=== PATIENT | female | born 1985 | race Caucasian/White ===

== ENCOUNTER 2020-06-08 13:22 | Inpatient (IN) | payer MEDICAID ==
[2020-06-08] MEDS ORDERED: Ondansetron 4 MG/2 ML SDV IVPUSH ONE ×2 (13:47→16:20)
[2020-06-08] MEDS ORDERED: Ketorolac 30 MG/ML SDV IVPUSH ONE (13:47)
[2020-06-08] MEDS ORDERED: Sodium Chloride 0.9% 1,000 ML IV ONE ×2 (13:47→18:31)
--- NOTE | 2020-06-08 13:54 | EDM.PDOC ---
ED HPI GENERAL MEDICAL PROBLEM - General Chief Complaint: General Stated Complaint: vomiting body aches Time Seen by Provider: 06/08/20 13:26 Source of Information: Reports: Patient History Limitations: Reports: No Limitations - History of Present Illness INITIAL COMMENTS - FREE TEXT/NARRATIVE: HISTORY AND PHYSICAL: History of present illness: Patient is a 34-year-old female who presents to the emergency room with complaints of nausea, vomiting, body aches and subjective fevers x24 hours. During the interviewing process she is tearful/crying states that she "just does not feel well". Yesterday she felt in good health. Upon awakening she states she just hurts "all over" and had a low-grade temperature of 99.5. She has tried to eat and drink but shortly after has vomited. Patient denies any chills, headache, change in vision, syncope or near syncope. Denies any chest pain, back pain, shortness of breath or cough. Denies any abdominal pain, nausea, vomiting, diarrhea, constipation or dysuria. Has not noted any blood in urine or stool. Patient has been eating and drinking appropriately. No recent exposure to any sick contacts. No recent travel. No recent antibiotic use. Review of systems: As per history of present illness and below otherwise all systems reviewed and negative. Past medical history: As per history of present illness and as reviewed below otherwise noncontributory. Surgical history: As per history of present illness and as reviewed below otherwise noncontributory. Social history: See social history for further information Family history: As per history of present illness and as reviewed below otherwise noncontributory. Physical exam: General: Well developed and well nourished 34-year-old female. Alert and orientated x 3. Nontoxic in appearance and in no acute distress. Vital signs are stable and have been reviewed by me. Nursing notes were reviewed. HEENT: Atraumatic, normocephalic, pupils equal and reactive bilaterally, negative for conjunctival pallor or scleral icterus, mucous membranes moist, TMs normal bilaterally, throat clear, neck supple, nontender, trachea midline. No drooling or trismus noted. No meningeal signs. No hot potato voice noted. Lungs: Clear to auscultation bilaterally. No wheezes, rales, or rhonchi. Chest nontender. Normal work of breathing, no accessory muscles used. Heart: S1S2, tachycardic with regular rate and rhythm without overt murmur, gallops, or rubs. No JVD. No peripheral edema Abdomen: Soft, nondistended, nontender. Normoactive bowel sounds. Negative for masses or costovertebral tenderness. Skin: Intact, warm, dry. No lesions or rashes noted. Hematologic: No petechiae or purpra. Mucosa appropriate color and normal nail bed color and refill. Extremities: Atraumatic, moves all extremities per self without difficulty or deficits, negative for cords or calf pain. Neurovascular unremarkable. Neuro: Awake, alert, oriented. Cranial nerves II through XII unremarkable. C erebellum unremarkable. Motor and sensory unremarkable throughout. Exam nonfocal. Psychiatric: Mood and affect are appropriate. Normal thought process. Answering questions appropriately. Notes: *This patient was seen and evaluated during the 2019 SARS-CoV-2 novel coronavirus pandemic period. Community viral transmission is ongoing at time of this encounter and the emergency department is operating under pandemic response procedures. Chest x-ray is unremarkable. Patient has a leukocytosis of 19.18, high neutrophils at 17.1. She also has an elevated D-dimer at 0.71. Her COVID and influenza screening are negative. Due to the leukocytosis and elevated D-dimer I will do a CT scan of her chest, abdomen and pelvis. No CT evidence of a large or central pulmonary embolus. Limited evaluation of some peripheral pulmonary arteries. An apparent luminal hypodensity in a left lower lobe branch is at least partially related to regional respiratory motion artifact. A patchy right middle lobe opacity and a small left upper lobe ground-glass opacity, compatible with infectious or inflammatory infiltrates, including, however not limited to, COVID-19. Correlate clinically and follow-up. A 1.4 cm right breast soft tissue nodule and a smaller left breast soft tissue nodule versus glandular tissue. Recommend formal breast evaluation with sonography and, if indicated, mammography. CT abd/pelvis shows a leiomyomatous uterus containing a 9.2 cm heterogeneous dominant mass which could represent a degenerated myoma. Malignant transformation cannot be excluded. The mass apparently compresses and displaces the endometrium, although endometrial involvement or origin cannot be entirely excluded. A 5.1 cm right adnexal low-density lesion. Recommend pelvic sonography and gynecological evaluation. Small pelvic free fluid. Focal edema and stranding in the retroperitoneum anterior to the distal aorta and IVC, nonspecific. This could be reactive, related to vascular or lymphatic congestion, versus a nonspecific regional inflammatory process. Hepatosplenomegaly. Prominent gonadal veins which could represent pelvic congestion syndrome. Small fat containing ventral hernias. Pelvic Ultrasound shows a 9.2 cm heterogeneous uterine myoma. A 4.7 cm right ovarian cyst. I have talked with the patient about today's findings, in addition to providing specific details for plan of care. Reassessment at the time of disposition demonstrates that the patient is in no acute distress. She continues to feel unwell. We will keep her for antibiotics and further evaluation/management. Dr Burnett was consulted on this case and is agreeable to keeping her for further care and management. Patient is aware and agreeable. Diagnostics: CBC, CMP, UA, chest x-ray, COVID/influenza Therapeutics: IV fluid, Zofran, Toradol, Morphine, Acetaminophen, Rocephin, Azithromycin Impression: Pneumonia Uterine myoma Plan: Admission to Med/Surg Definitive disposition and diagnosis as appropriate pending reevaluation and review of above. Duration: Hour(s): general Pain Score (Numeric/FACES): 7 - Related Data Allergies Allergy/AdvReac Type Severity Reaction Status Date / Time No Known Allergies Allergy Verified 06/08/20 20:35 Home Meds: Home Meds Inhaler,Assist Device,Accesory [Easivent] 06/08/20 [History] ED ROS GENERAL - Review of Systems Review Of Systems: Comprehensive ROS is negative, except as noted in HPI. ED EXAM, GENERAL - Physical Exam Exam: See Below (See dictation) Course - Vital Signs Last Recorded V/S: Last Vital Signs Temp 98.4 F 06/08/20 20:20 Pulse 109 H 06/08/20 20:20 Resp 18 06/08/20 20:20 BP 124/56 L 06/08/20 20:20 Pulse Ox 100 06/08/20 20:20 - Orders/Labs/Meds Orders: Active Orders 24 hr Category Date Time Status Admission Status [Patient Status] [ADT] Stat ADT 06/08/20 18:32 Active Medication Orders Acetaminophen (Tylenol) 650 mg PO Q4H PRN PRN Reason: Pain (Mild 1-3)/fever Albuterol/Ipratropium (Combivent Respimat) 0 gm INH Q4H PRN PRN Reason: Dyspnea Azithromycin (Zithromax) 500 mg PO Q24H SYLVIA Enoxaparin Sodium (Lovenox) 40 mg SUBCUT Q24H SYLVIA Last Admin: 06/08/20 20:16 Dose: 40 mg Documented by: ANNY Sodium Chloride (Normal Saline) 1,000 mls @ 125 mls/hr IV STAT SYLVIA Stop: 06/09/20 03:14 Last Admin: 06/08/20 20:19 Dose: 125 mls/hr Documented by: ANNY Ceftriaxone Sodium/Dextrose 1 (gm/ Premix) 50 mls @ 100 mls/hr IV Q24H SYLVIA Ondansetron HCl (Zofran) 4 mg IVPUSH Q4H PRN PRN Reason: Nausea Labs: Laboratory Tests 06/08/20 06/08/20 06/08/20 Range/Units 14:07 14:07 14:07 WBC 19.18 H (4.0-11.0) K/uL RBC 4.60 (4.30-5.90) M/uL Hgb 8.8 L (12.0-16.0) g/dL Hct 31.2 L (36.0-46.0) % MCV 67.8 L (80.0-98.0) fL MCH 19.1 L (27.0-32.0) pg MCHC 28.2 L (31.0-37.0) g/dL RDW Std Deviation 41.6 (28.0-62.0) fl RDW Coeff of Hailee 17 H (11.0-15.0) % Plt Count 310 (150-400) K/uL MPV 10.50 (7.40-12.00) fL Neut % (Auto) 89.1 H (48.0-80.0) % Lymph % (Auto) 4.2 L (16.0-40.0) % Cowley % (Auto) 6.4 (0.0-15.0) % Eos % (Auto) 0.2 (0.0-7.0) % Baso % (Auto) 0.1 (0.0-1.5) % Neut # (Auto) 17.1 H (1.4-5.7) K/uL Lymph # (Auto) 0.8 (0.6-2.4) K/uL Cowley # (Auto) 1.2 H (0.0-0.8) K/uL Eos # (Auto) 0.0 (0.0-0.7) K/uL Baso # (Auto) 0.0 (0.0-0.1) K/uL Nucleated RBC % 0.0 /100WBC Nucleated RBCs # 0 K/uL D-Dimer, Quantitative 0.71 H (0.0-0.50) mg/L FEU Sodium 139 (136-145) mmol/L Potassium 3.6 (3.5-5.1) mmol/L Chloride 103 (98-107) mmol/L Carbon Dioxide 25.7 (21.0-32.0) mmol/L BUN 13 (7.0-18.0) mg/dL Creatinine 0.9 (0.6-1.0) mg/dL Est Cr Clr Drug Dosing 69.00 mL/min Estimated GFR (MDRD) > 60.0 ml/min Glucose 107 H (74-106) mg/dL Calcium 8.5 (8.5-10.1) mg/dL Total Bilirubin 0.6 (0.2-1.0) mg/dL AST 11 L (15-37) IU/L ALT 9 L (14-63) IU/L Alkaline Phosphatase 83 (46-116) U/L Total Protein 7.6 (6.4-8.2) g/dL Albumin 3.8 (3.4-5.0) g/dL Globulin 3.8 (2.6-4.0) g/dL Albumin/Globulin Ratio 1.0 (0.9-1.6) Urine Color Urine Appearance Urine pH (5.0-8.0) Ur Specific [place] (1.001-1.035) Urine Protein (NEGATIVE) mg/dL Urine Glucose (UA) (NEGATIVE) mg/dL Urine Ketones (NEGATIVE) mg/dL Urine Occult Blood (NEGATIVE) Urine Nitrite (NEGATIVE) Urine Bilirubin (NEGATIVE) Urine Urobilinogen (<2.0) EU/dL Ur Leukocyte Esterase (NEGATIVE) Urine RBC (0-2/HPF) Urine WBC (0-5/HPF) Ur Epithelial Cells (NONE-FEW) Urine Bacteria (NEGATIVE) Urine HCG, Qual (NEGATIVE) Influenza Type A RNA (NEGATIVE) Influenza Type B RNA (NEGATIVE) SARS-CoV-2 RNA (ADA) (NEGATIVE) 06/08/20 06/08/20 06/08/20 Range/Units 14:35 16:34 16:34 WBC (4.0-11.0) K/uL RBC (4.30-5.90) M/uL Hgb (12.0-16.0) g/dL Hct (36.0-46.0) % MCV (80.0-98.0) fL MCH (27.0-32.0) pg MCHC (31.0-37.0) g/dL RDW Std Deviation (28.0-62.0) fl RDW Coeff of Hailee (11.0-15.0) % Plt Count (150-400) K/uL MPV (7.40-12.00) fL Neut % (Auto) (48.0-80.0) % Lymph % (Auto) (16.0-40.0) % Cowley % (Auto) (0.0-15.0) % Eos % (Auto) (0.0-7.0) % Baso % (Auto) (0.0-1.5) % Neut # (Auto) (1.4-5.7) K/uL Lymph # (Auto) (0.6-2.4) K/uL Cowley # (Auto) (0.0-0.8) K/uL Eos # (Auto) (0.0-0.7) K/uL Baso # (Auto) (0.0-0.1) K/uL Nucleated RBC % /100WBC Nucleated RBCs # K/uL D-Dimer, Quantitative (0.0-0.50) mg/L FEU Sodium (136-145) mmol/L Potassium (3.5-5.1) mmol/L Chloride (98-107) mmol/L Carbon Dioxide (21.0-32.0) mmol/L BUN (7.0-18.0) mg/dL Creatinine (0.6-1.0) mg/dL Est Cr Clr Drug Dosing mL/min Estimated GFR (MDRD) ml/min Glucose (74-106) mg/dL Calcium (8.5-10.1) mg/dL Total Bilirubin (0.2-1.0) mg/dL AST (15-37) IU/L ALT (14-63) IU/L Alkaline Phosphatase (46-116) U/L Total Protein (6.4-8.2) g/dL Albumin (3.4-5.0) g/dL Globulin (2.6-4.0) g/dL Albumin/Globulin Ratio (0.9-1.6) Urine Color YELLOW Urine Appearance CLEAR Urine pH 5.0 (5.0-8.0) Ur Specific [place] 1.015 (1.001-1.035) Urine Protein NEGATIVE (NEGATIVE) mg/dL Urine Glucose (UA) NEGATIVE (NEGATIVE) mg/dL Urine Ketones NEGATIVE (NEGATIVE) mg/dL Urine Occult Blood TRACE-INTACT H (NEGATIVE) Urine Nitrite NEGATIVE (NEGATIVE) Urine Bilirubin NEGATIVE (NEGATIVE) Urine Urobilinogen 0.2 (<2.0) EU/dL Ur Leukocyte Esterase NEGATIVE (NEGATIVE) Urine RBC 0-1 (0-2/HPF) Urine WBC 0-1 (0-5/HPF) Ur Epithelial Cells RARE (NONE-FEW) Urine Bacteria FEW (NEGATIVE) Urine HCG, Qual NEGATIVE (NEGATIVE) Influenza Type A RNA NEGATIVE (NEGATIVE) Influenza Type B RNA NEGATIVE (NEGATIVE) SARS-CoV-2 RNA (ADA) NEGATIVE (NEGATIVE) Meds: Medications Generic Name Dose Route Start Last Admin Trade Name Freq PRN Reason Stop Dose Admin Acetaminophen 650 mg 06/08/20 19:05 Tylenol PO Q4H PRN Pain (Mild 1-3)/fever Albuterol/Ipratropium 0 gm 06/08/20 18:00 Combivent Respimat INH Q4H PRN Dyspnea Azithromycin 500 mg 06/08/20 19:15 Zithromax PO Q24H SYLVIA Enoxaparin Sodium 40 mg 06/08/20 19:15 06/08/20 20:16 Lovenox SUBCUT 40 mg Q24H SYLVIA Administration Sodium Chloride 1,000 mls @ 125 mls/hr 06/08/20 19:15 06/08/20 20:19 Normal Saline IV 06/09/20 03:14 125 mls/hr STAT SYLVIA Administration Ceftriaxone Sodium/Dextrose 1 50 mls @ 100 mls/hr 06/08/20 19:15 gm/ Premix IV Q24H SYLVIA Ondansetron HCl 4 mg 06/08/20 19:05 Zofran IVPUSH Q4H PRN Nausea Discontinued Medications Generic Name Dose Route Start Last Admin Trade Name Maris PRN Reason Stop Dose Admin Acetaminophen 1,000 mg 06/08/20 18:31 06/08/20 18:41 Tylenol Extra Strength PO 06/08/20 18:32 1,000 mg ONETIME ONE Administration Azithromycin 500 mg 06/08/20 18:30 06/08/20 18:41 Zithromax PO 06/08/20 18:31 500 mg NOW STA Administration Sodium Chloride 1,000 mls @ 999 mls/hr 06/08/20 13:47 06/08/20 14:05 Normal Saline IV 06/08/20 14:47 999 mls/hr STAT ONE Administration Ceftriaxone Sodium/Dextrose 1 50 mls @ 100 mls/hr 06/08/20 17:05 06/08/20 17:46 gm/ Premix IV 06/08/20 17:34 100 mls/hr ONETIME ONE Administration Sodium Chloride 1,000 mls @ 125 mls/hr 06/08/20 18:31 06/08/20 18:41 Normal Saline IV 06/09/20 02:30 125 mls/hr STAT ONE Administration Iopamidol 100 ml 06/08/20 17:28 06/08/20 17:29 Isovue Multipack-370 (76%) IVPUSH 06/08/20 17:29 100 ml ONETIME STA Administration Ketorolac Tromethamine 30 mg 06/08/20 13:47 06/08/20 14:06 Toradol IVPUSH 06/08/20 13:48 30 mg ONETIME ONE Administration Morphine Sulfate 4 mg 06/08/20 14:56 06/08/20 15:01 Morphine IVPUSH 06/08/20 14:57 4 mg ONETIME ONE Administration Morphine Sulfate 4 mg 06/08/20 16:20 06/08/20 16:40 Morphine IVPUSH 06/08/20 16:21 4 mg ONETIME ONE Administration Ondansetron HCl 4 mg 06/08/20 13:47 06/08/20 14:06 Zofran IVPUSH 06/08/20 13:48 4 mg ONETIME ONE Administration Ondansetron HCl 4 mg 06/08/20 16:20 06/08/20 16:41 Zofran IVPUSH 06/08/20 16:21 4 mg ONETIME ONE Administration Departure - Departure Time of Disposition: 21:02 Disposition: Admitted As Inpatient 65 Clinical Impression: Pneumonia, Uterine myoma - Discharge Information Sepsis Event Note (ED) - Evaluation Sepsis Screening Result: No Definite Risk - Focused Exam Vital Signs: Vital Signs Temp Pulse Resp BP Pulse Ox 06/08/20 18:16 103 H 104/58 L 100 06/08/20 13:44 98.1 F 134 H 19 120/62 97 - My Orders Last 24 Hours: My Active Orders 06/08/20 18:32 Admission Status [Patient Status] [ADT] Stat - Assessment/Plan Last 24 Hours: My Active Orders 06/08/20 18:32 Admission Status [Patient Status] [ADT] Stat
--- NOTE | 2020-06-08 14:21 | CR ---
INDICATION: sob. 1 image sent. TECHNIQUE: Chest 1 view. COMPARISON: None. FINDINGS: Cardiovascular and mediastinum: Heart size and vasculature are normal in caliber and appearance. Mediastinum is within normal limits. Lungs and pleural space: Lungs are clear. No sign of infiltrate or mass. No sign of pleural effusion. No pneumothorax. Bones and soft tissues: No significant findings. IMPRESSION: Unremarkable chest. Dictated by: Len Garrison MD @ 06/08/2020 14:20:00 (Electronically Signed)
[2020-06-08 14:38] LABS: BLOOD UREA NITROGEN,BUN 13 mg/dL (7.0-18.0); CARBON DIOXIDE,CO2 25.7 mmol/L (21.0-32.0); CHLORIDE,CL 103 mmol/L (98-107); GLUCOSE RANDOM 107 mg/dL (74-106); POTASSIUM,K 3.6 mmol/L (3.5-5.1); SODIUM,NA 139 mmol/L (136-145)
[2020-06-08] MEDS ORDERED: Morphine 4 MG/ML Syringe IVPUSH ONE ×2 (14:56→16:20)
[2020-06-08 15:20] LABS: CORONAVIRUS COVID-19 NAA NEGATIVE (NEGATIVE); INFLUENZA A NAA NEGATIVE (NEGATIVE); INFLUENZA B NAA NEGATIVE (NEGATIVE)
--- NOTE | 2020-06-08 16:41 | CT ---
INDICATION: SOB. TECHNIQUE: CT chest pulmonary PE protocol acquired with IV contrast. 100 mL of Isovue 370 administered COMPARISON: None FINDINGS: Cardiovascular structures: Limited evaluation of some distal segmental and subsegmental pulmonary arteries due to poor opacification and mild respiratory motion. No large, central pulmonary embolus. An apparent luminal hypodensity in an anterior left lower lobe pulmonary artery on images 150-154 series 401 is at least partially related to regional motion artifact. Normal cardiac size and aortic caliber. Mediastinum and ramón: No mass or adenopathy. Lungs: A patchy opacity in the posterior right middle lobe centrally and a 1.1 cm ground-glass opacity in the anterior left upper lobe. A 3 mm right middle lobe nodular opacity on image 83 versus a vessel, and a 3 mm pleural-based posterior right lower lobe nodule on image 117, statistically post inflammatory in a patient of this age. Pleura and pericardium: No effusions. Chest wall and axilla: A 1.2 x 0.8 x 1.4 cm ovoid right breast soft tissue nodule on image 89, and a 0.8 x 0.6 x 1.3 cm ovoid left breast density on image 90, versus glandular tissue. No abnormally enlarged axillary lymph nodes. Inhomogeneous thyroid, at least partially related to regional artifact. Bones: No significant findings. IMPRESSION: No CT evidence of a large or central pulmonary embolus. Limited evaluation of some peripheral pulmonary arteries. An apparent luminal hypodensity in a left lower lobe branch is at least partially related to regional respiratory motion artifact. If there is clinical concern for peripheral pulmonary emboli, correlate with VQ scan. A patchy right middle lobe opacity and a small left upper lobe ground-glass opacity, compatible with infectious or inflammatory infiltrates, including, however not limited to, COVID-19. Correlate clinically and follow-up. A 1.4 cm right breast soft tissue nodule and a smaller left breast soft tissue nodule versus glandular tissue. Recommend formal breast evaluation with sonography and, if indicated, mammography. Please note that all CT scans at this facility use dose modulation, iterative reconstruction, and/or weight-based dosing when appropriate to reduce radiation dose to as low as reasonably achievable. Dictated by Yosvany Chand MD @ Jun 08 2020 4:22PM Signed by Dr. Yosvany Chand @ Jun 08 2020 4:39PM
--- NOTE | 2020-06-08 16:56 | CT ---
INDICATION: Nausea and vomiting TECHNIQUE: CT abdomen and pelvis acquired with IV contrast. 100 mL of Isovue 370 administered. COMPARISON: None available FINDINGS: Liver: Hepatomegaly measuring 21.6 cm craniocaudally. Spleen: Splenomegaly measuring 14.4 cm craniocaudally. Pancreas: Unremarkable. Gallbladder and bile ducts: Unremarkable. Adrenal glands: Unremarkable. Kidneys: Unremarkable. GI tract: No bowel obstruction. A normal appendix. No significant pericolonic changes. Vascular structures: Normal aortic caliber. Prominent gonadal veins. Focal edema and stranding in the retroperitoneum anterior to the distal aorta and IVC, nonspecific. Lymph nodes: No abnormally enlarged lymph nodes. Miscellaneous: Small pelvic free fluid. No free air. Small supraumbilical and periumbilical fat containing hernias. Pelvic Organs: An enlarged uterus containing a 9.2 x 7.9 x 8.3 cm. heterogeneous mixed density mass, demonstrating irregular low-density areas and soft tissue components. The mass apparently compresses and displaces the endometrium. An additional 2.3 x 1.9 cm low-density left fundal uterine lesion. A 5.1 x 3.4 x 4.1 cm right adnexal low-density lesion. A partially contracted bladder. Bones: Unremarkable for age. IMPRESSION: A leiomyomatous uterus containing a 9.2 cm heterogeneous dominant mass which could represent a degenerated myoma. Malignant transformation cannot be excluded. The mass apparently compresses and displaces the endometrium, although endometrial involvement or origin cannot be entirely excluded. A 5.1 cm right adnexal low-density lesion. Recommend pelvic sonography and gynecological evaluation. Small pelvic free fluid. Focal edema and stranding in the retroperitoneum anterior to the distal aorta and IVC, nonspecific. This could be reactive, related to vascular or lymphatic congestion, versus a nonspecific regional inflammatory process. Hepatosplenomegaly. Prominent gonadal veins which could represent pelvic congestion syndrome. Small fat containing ventral hernias. Please note that all CT scans at this facility use dose modulation, iterative reconstruction, and/or weight-based dosing when appropriate to reduce radiation dose to as low as reasonably achievable. Dictated by Yosvany Chand MD @ Jun 08 2020 4:22PM Signed by Dr. Yosvany Chand @ Jun 08 2020 4:55PM
[2020-06-08] MEDS ORDERED: cefTRIAXone 1 GM in Premix Bag 1 BAG IV ONE (17:05)
[2020-06-08] MEDS ORDERED: Iopamidol 755 MG/ML 500 ML Multipack Bottle IVPUSH STA (17:28)
[2020-06-08] MEDS ORDERED: Albuterol/Ipratropium 4 GM Inhalation Spray INH PRN (18:00)
--- NOTE | 2020-06-08 18:26 | US ---
INDICATION: Uterine fibroid seen on CT TECHNIQUE: Multiple transabdominal sonographic images of the pelvis. Transvaginal imaging was not performed. COMPARISON: A CT scan from the same day FINDINGS: Uterus: 12.4 x 10.0 x 8.9 cm. A 9.2 x 7.0 x 8.3 cm heterogeneous, predominately hypoechoic uterine myomatous mass. Endometrium: 13 mm in thickness. No sign of endometrial mass or fluid. Right ovary: 8.3 x 5.8 x 4.8 cm. A 4.7 x 2.7 x 4.2 cm right ovarian cyst. Normal arterial and venous blood flow. Left ovary: 3.1 x 2.0 x 2.7 cm. Several left ovarian follicles measuring up to 1.8 cm. Normal arterial and venous blood flow. Cul-de-sac: No significant free fluid visualized. IMPRESSION: A 9.2 cm heterogeneous uterine myoma. A 4.7 cm right ovarian cyst. Dictated by Yosvany Chand MD @ Jun 08 2020 6:19PM Signed by Dr. Yosvany Chand @ Jun 08 2020 6:24PM
[2020-06-08] MEDS ORDERED: Azithromycin 250 MG Tab PO STA (18:30)
[2020-06-08] MEDS ORDERED: Acetaminophen 500 MG Tab PO ONE (18:31)
--- NOTE | 2020-06-08 19:12 | PCM.HP.2 ---
H&P History of Present Illness - General Date of Service: 06/08/20 Admit Problem/Dx: Admission Diagnosis/Problem Admission Diagnosis/Problem Pneumonia Source of Information: Patient History Limitations: Reports: No Limitations - History of Present Illness Initial Comments - Free Text/Narative: 34-year-old female presents complaining of nausea, vomiting, body aches, fevers and shortness of breath for the past 24 hours. She has a PMH of asthma. She has not been able to eat very much because of her nausea. She reports that she hasn't felt very well for the past several weeks but came to the hospital today when her breathing felt worse and body aches. She has not had any cough, chest pain, blood in stool, blood in urine, numbness or tingling in extremities. In the ER, WBC 19,000, D-dimer 0.71, CXR unremarkable. CT angio was negative for PE but showed patchy opacities bilaterally. CT abd/pelvis showed leiomyomatous uterus. Trans-vaginal ultrasound showed 9x7x8 cm uterine myoma and 4.7 cm right ovarian cyst. Patient given 1 L IV NS bolus, Rocephin, azithromycin, Zofran, morphine and Toradol. She was admitted for further evaluation and treatment. general Pain Score (Numeric/FACES): 7 - Related Data Allergies/Adverse Reactions: Allergies Allergy/AdvReac Type Severity Reaction Status Date / Time No Known Allergies Allergy Verified 06/08/20 20:35 Home Medications: Home Meds Inhaler,Assist Device,Accesory [Easivent] 06/08/20 [History] Past Medical History Other OB/BYN History: "tubes tied" - Past Surgical History HEENT Surgical History: Reports: Myringotomy w Tube(s) Social & Family History - Tobacco Use Tobacco Use Status *Q: Never Tobacco User - Recreational Drug Use Recreational Drug Use: No H&P Review of Systems - Review of Systems: Review Of Systems: Comprehensive ROS is negative, except as noted in HPI. Exam - Exam Exam: See Below - Vital Signs Vital Signs: Last Vital Signs Temp 36.7 C 06/08/20 13:44 Pulse 111 H 06/08/20 18:40 Resp 19 06/08/20 13:44 BP 103/60 06/08/20 18:40 Pulse Ox 100 06/08/20 18:40 Weight: 117.934 kg - Exam General: Alert, Oriented, Cooperative, Other (NAD) HEENT: Conjunctiva Clear, EOMI, Hearing Intact, Posterior Pharynx Clear, Pupils Equal Neck: Supple, Trachea Midline Lungs: Clear to Auscultation, Normal Respiratory Effort Cardiovascular: Regular Rate, Regular Rhythm GI/Abdominal Exam: Normal Bowel Sounds, Soft, Non-Tender, No Distention Extremities: Normal Inspection, No Pedal Edema Neurological: Cranial Nerves Intact, Strength Equal Bilateral, Normal Speech, Normal Tone Neuro Extensive - Mental Status: Alert, Oriented x3, Normal Mood/Affect - Patient Data Lab Results Last 24 hrs: Laboratory Results - last 24 hr 06/08/20 06/08/20 06/08/20 Range/Units 14:07 14:07 14:07 WBC 19.18 H (4.0-11.0) K/uL RBC 4.60 (4.30-5.90) M/uL Hgb 8.8 L (12.0-16.0) g/dL Hct 31.2 L (36.0-46.0) % MCV 67.8 L (80.0-98.0) fL MCH 19.1 L (27.0-32.0) pg MCHC 28.2 L (31.0-37.0) g/dL RDW Std Deviation 41.6 (28.0-62.0) fl RDW Coeff of Hailee 17 H (11.0-15.0) % Plt Count 310 (150-400) K/uL MPV 10.50 (7.40-12.00) fL Neut % (Auto) 89.1 H (48.0-80.0) % Lymph % (Auto) 4.2 L (16.0-40.0) % Becker % (Auto) 6.4 (0.0-15.0) % Eos % (Auto) 0.2 (0.0-7.0) % Baso % (Auto) 0.1 (0.0-1.5) % Neut # (Auto) 17.1 H (1.4-5.7) K/uL Lymph # (Auto) 0.8 (0.6-2.4) K/uL Becker # (Auto) 1.2 H (0.0-0.8) K/uL Eos # (Auto) 0.0 (0.0-0.7) K/uL Baso # (Auto) 0.0 (0.0-0.1) K/uL Nucleated RBC % 0.0 /100WBC Nucleated RBCs # 0 K/uL D-Dimer, Quantitative 0.71 H (0.0-0.50) mg/L FEU Sodium 139 (136-145) mmol/L Potassium 3.6 (3.5-5.1) mmol/L Chloride 103 (98-107) mmol/L Carbon Dioxide 25.7 (21.0-32.0) mmol/L BUN 13 (7.0-18.0) mg/dL Creatinine 0.9 (0.6-1.0) mg/dL Est Cr Clr Drug Dosing 69.00 mL/min Estimated GFR (MDRD) > 60.0 ml/min Glucose 107 H (74-106) mg/dL Calcium 8.5 (8.5-10.1) mg/dL Total Bilirubin 0.6 (0.2-1.0) mg/dL AST 11 L (15-37) IU/L ALT 9 L (14-63) IU/L Alkaline Phosphatase 83 (46-116) U/L Total Protein 7.6 (6.4-8.2) g/dL Albumin 3.8 (3.4-5.0) g/dL Globulin 3.8 (2.6-4.0) g/dL Albumin/Globulin Ratio 1.0 (0.9-1.6) Urine Color Urine Appearance Urine pH (5.0-8.0) Ur Specific [place] (1.001-1.035) Urine Protein (NEGATIVE) mg/dL Urine Glucose (UA) (NEGATIVE) mg/dL Urine Ketones (NEGATIVE) mg/dL Urine Occult Blood (NEGATIVE) Urine Nitrite (NEGATIVE) Urine Bilirubin (NEGATIVE) Urine Urobilinogen (<2.0) EU/dL Ur Leukocyte Esterase (NEGATIVE) Urine RBC (0-2/HPF) Urine WBC (0-5/HPF) Ur Epithelial Cells (NONE-FEW) Urine Bacteria (NEGATIVE) Urine HCG, Qual (NEGATIVE) Influenza Type A RNA (NEGATIVE) Influenza Type B RNA (NEGATIVE) SARS-CoV-2 RNA (ADA) (NEGATIVE) 06/08/20 06/08/20 06/08/20 Range/Units 14:35 16:34 16:34 WBC (4.0-11.0) K/uL RBC (4.30-5.90) M/uL Hgb (12.0-16.0) g/dL Hct (36.0-46.0) % MCV (80.0-98.0) fL MCH (27.0-32.0) pg MCHC (31.0-37.0) g/dL RDW Std Deviation (28.0-62.0) fl RDW Coeff of [place]ilee (11.0-15.0) % Plt Count (150-400) K/uL MPV (7.40-12.00) fL Neut % (Auto) (48.0-80.0) % Lymph % (Auto) (16.0-40.0) % Becker % (Auto) (0.0-15.0) % Eos % (Auto) (0.0-7.0) % Baso % (Auto) (0.0-1.5) % Neut # (Auto) (1.4-5.7) K/uL Lymph # (Auto) (0.6-2.4) K/uL Becker # (Auto) (0.0-0.8) K/uL Eos # (Auto) (0.0-0.7) K/uL Baso # (Auto) (0.0-0.1) K/uL Nucleated RBC % /100WBC Nucleated RBCs # K/uL D-Dimer, Quantitative (0.0-0.50) mg/L FEU Sodium (136-145) mmol/L Potassium (3.5-5.1) mmol/L Chloride (98-107) mmol/L Carbon Dioxide (21.0-32.0) mmol/L BUN (7.0-18.0) mg/dL Creatinine (0.6-1.0) mg/dL Est Cr Clr Drug Dosing mL/min Estimated GFR (MDRD) ml/min Glucose (74-106) mg/dL Calcium (8.5-10.1) mg/dL Total Bilirubin (0.2-1.0) mg/dL AST (15-37) IU/L ALT (14-63) IU/L Alkaline Phosphatase (46-116) U/L Total Protein (6.4-8.2) g/dL Albumin (3.4-5.0) g/dL Globulin (2.6-4.0) g/dL Albumin/Globulin Ratio (0.9-1.6) Urine Color YELLOW Urine Appearance CLEAR Urine pH 5.0 (5.0-8.0) Ur Specific [place] 1.015 (1.001-1.035) Urine Protein NEGATIVE (NEGATIVE) mg/dL Urine Glucose (UA) NEGATIVE (NEGATIVE) mg/dL Urine Ketones NEGATIVE (NEGATIVE) mg/dL Urine Occult Blood TRACE-INTACT H (NEGATIVE) Urine Nitrite NEGATIVE (NEGATIVE) Urine Bilirubin NEGATIVE (NEGATIVE) Urine Urobilinogen 0.2 (<2.0) EU/dL Ur Leukocyte Esterase NEGATIVE (NEGATIVE) Urine RBC 0-1 (0-2/HPF) Urine WBC 0-1 (0-5/HPF) Ur Epithelial Cells RARE (NONE-FEW) Urine Bacteria FEW (NEGATIVE) Urine HCG, Qual NEGATIVE (NEGATIVE) Influenza Type A RNA NEGATIVE (NEGATIVE) Influenza Type B RNA NEGATIVE (NEGATIVE) SARS-CoV-2 RNA (ADA) NEGATIVE (NEGATIVE) Result Diagrams: 06/08/20 14:07 06/08/20 14:07 Sepsis Event Note - Evaluation Sepsis Screening Result: No Definite Risk - Focused Exam Vital Signs: Vital Signs Temp Pulse Resp BP Pulse Ox 06/08/20 18:40 111 H 103/60 100 06/08/20 18:16 103 H 104/58 L 100 06/08/20 13:44 36.7 C 134 H 19 120/62 97 - Problem List (1) Pneumonia SNOMED Code(s): 284609958 ICD Code: J18.9 - PNEUMONIA, UNSPECIFIED ORGANISM Status: Acute Current Visit: Yes (2) Nausea and vomiting SNOMED Code(s): 39360126 ICD Code: R11.2 - NAUSEA WITH VOMITING, UNSPECIFIED Status: Acute Current Visit: Yes (3) Leiomyoma SNOMED Code(s): 277791877346295, 552741739619778 ICD Code: D21.9 - BENIGN NEOPLASM OF CONNECTIVE AND OTHER SOFT TISSUE, UNSP Status: Acute Current Visit: Yes Problem List Initiated/Reviewed/Updated: Yes Orders Last 24hrs: Active Orders 24 hr Category Date Time Status Admission Status [Patient Status] [ADT] Stat ADT 06/08/20 18:32 Active Oxygen Therapy [RC] PRN Care 06/08/20 19:05 Ordered RT Incentive Spirometry [RC] ASDIRECTED Care 06/08/20 19:10 Ordered RT Post Treatment Assessment [RC] Click to Edit Care 06/08/20 19:11 Ordered RT Pre-Treatment Assessment [RC] Click to Edit Care 06/08/20 19:11 Ordered Up ad Inna [RC] ASDIRECTED Care 06/08/20 19:05 Ordered VTE/DVT Education [RC] PER UNIT ROUTINE Care 06/08/20 19:05 Ordered Vital Signs [RC] Q4H Care 06/08/20 19:05 Ordered Regular Diet [DIET] Diet 06/08/20 Dinner Ordered CBC WITH AUTO DIFF [HEME] AM Lab 06/09/20 05:11 Ordered CMP [COMPREHENSIVE METABOLIC PN,CMP] [CHEM] AM Lab 06/09/20 05:11 Ordered FERRITIN [CHEM] Routine Lab 06/08/20 19:07 Ordered IRON/TIBC [CHEM] Routine Lab 06/08/20 19:07 Ordered LACTIC ACID,WHOLE BLOOD [BG] Routine Lab 06/08/20 19:07 Ordered Acetaminophen [TylenoL] Med 06/08/20 19:05 Ordered 650 mg PO Q4H PRN Albuterol/Ipratropium [Combivent Respimat] Med 06/08/20 18:00 Ordered See Dose Instructions INH Q4H PRN Azithromycin [Zithromax] Med 06/08/20 19:15 Ordered 500 mg PO Q24H Enoxaparin [Lovenox] Med 06/08/20 19:15 Ordered 40 mg SUBCUT Q24H Ondansetron [Zofran] Med 06/08/20 19:05 Ordered 4 mg IVPUSH Q4H PRN Sodium Chloride 0.9% [Normal Saline] 1,000 ml Med 06/08/20 19:15 Ordered IV STAT cefTRIAXone [Rocephin in Dextrose,Iso-Osm 1 GM/50 ML] 1 Med 06/08/20 19:15 Ordered gm Premix Bag 1 bag IV Q24H Resuscitation Status Routine Resus Stat 06/08/20 19:05 Ordered Medication Orders Acetaminophen (Tylenol) 650 mg PO Q4H PRN PRN Reason: Pain (Mild 1-3)/fever Albuterol/Ipratropium (Combivent Respimat) 0 gm INH Q4H PRN PRN Reason: Dyspnea Azithromycin (Zithromax) 500 mg PO Q24H [facility] Enoxaparin Sodium (Lovenox) 40 mg SUBCUT Q24H [facility] Sodium Chloride (Normal Saline) 1,000 mls @ 125 mls/hr IV STAT SYLVIA Stop: 06/09/20 03:14 Ceftriaxone Sodium/Dextrose 1 (gm/ Premix) 50 mls @ 100 mls/hr IV Q24H [facility] Ondansetron HCl (Zofran) 4 mg IVPUSH Q4H PRN PRN Reason: Nausea Assessment/Plan Comment:: Assessment and Plan: 1. Community-acquired pneumonia: - Admit to med/surg. Patient given 1 L IV NS bolus in ER. Will start IV NS 125 cc/hr. Supplemental oxygen prn, combivent q4 prn, rocephin and azithromycin. Encourage incentive spirometer use. Will check lactate. - COVID-19 and influenza test were negative. - CXR negative. CT angio showed bilateral patchy opacities. 2. Nausea and vomiting: - Zofran prn. 3. Uterine fibroid: - Trans-vaginal ultrasound showed 9x7x8 cm uterine myoma. Patient will require outpatient [facility] follow-up. 4. Right breast soft tissue nodule: - Will require outpatient evaluation with ultrasound. 5. Past medical history of asthma, anxiety and depression. 6. DVT prophylaxis: - Lovenox 40 mg subcut qd.
[2020-06-08] MEDS ORDERED: Azithromycin 250 MG Tab PO SCH ×2 (19:15→21:00)
[2020-06-08] MEDS ORDERED: Sodium Chloride 0.9% 1,000 ML IV SCH (19:15)
[2020-06-08] MEDS ORDERED: cefTRIAXone 1 GM in Premix Bag 1 BAG IV SCH (19:15)
[2020-06-08] MEDS ORDERED: Enoxaparin 40 MG/0.4 ML Syringe SUBCUT SCH (19:15)
[2020-06-08] MEDS: Acetaminophen 325 MG Tab PO PRN (22:09)
[2020-06-08] MEDS: Ondansetron 4 MG/2 ML SDV IVPUSH PRN (23:03)
[2020-06-08] MEDS ORDERED: Sodium Chloride 0.9% 500 ML IV ONE (23:21)
[2020-06-09] MEDS: Ibuprofen 400 MG Tab PO PRN ×3 (01:25→20:34)
[2020-06-09] MEDS: Morphine 2 MG/ML SYRINGE IVPUSH PRN ×2 (03:17→07:29)
[2020-06-09] MEDS: Sodium Chloride 0.9% 1,000 ML IV SCH ×3 (05:20→20:37)
[2020-06-09 06:07] LABS: CARBON DIOXIDE,CO2 25.3 mmol/L (21.0-32.0); POTASSIUM,K 3.4 mmol/L (3.5-5.1)
--- NOTE | 2020-06-09 08:24 | PCM.PN ---
- General Info Date of Service: 06/09/20 Subjective Update: Reports feeling nausea and body aches this morning. Denies any fevers, cough, SOB or chest pain. - Patient Data Vitals - Most Recent: Last Vital Signs Temp 36.8 C 06/09/20 04:14 Pulse 88 06/09/20 04:14 Resp 17 06/09/20 04:14 BP 103/58 L 06/09/20 04:14 Pulse Ox 98 06/09/20 04:14 Weight - Most Recent: 117.979 kg I&O - Last 24 Hours: Intake & Output 06/08/20 06/09/20 06/09/20 22:59 06:59 14:59 Intake Total 2887 Output Total 700 Balance 2187 Lab Results Last 24 Hours: Laboratory Results - last 24 hr 06/08/20 06/08/20 06/08/20 Range/Units 14:07 14:07 14:07 WBC 19.18 H (4.0-11.0) K/uL RBC 4.60 (4.30-5.90) M/uL Hgb 8.8 L (12.0-16.0) g/dL Hct 31.2 L (36.0-46.0) % MCV 67.8 L (80.0-98.0) fL MCH 19.1 L (27.0-32.0) pg MCHC 28.2 L (31.0-37.0) g/dL RDW Std Deviation 41.6 (28.0-62.0) fl RDW Coeff of Hailee 17 H (11.0-15.0) % Plt Count 310 (150-400) K/uL MPV 10.50 (7.40-12.00) fL Neut % (Auto) 89.1 H (48.0-80.0) % Lymph % (Auto) 4.2 L (16.0-40.0) % [place] % (Auto) 6.4 (0.0-15.0) % Eos % (Auto) 0.2 (0.0-7.0) % Baso % (Auto) 0.1 (0.0-1.5) % Neut # (Auto) 17.1 H (1.4-5.7) K/uL Lymph # (Auto) 0.8 (0.6-2.4) K/uL [place] # (Auto) 1.2 H (0.0-0.8) K/uL Eos # (Auto) 0.0 (0.0-0.7) K/uL Baso # (Auto) 0.0 (0.0-0.1) K/uL Nucleated RBC % 0.0 /100WBC Nucleated RBCs # 0 K/uL D-Dimer, Quantitative 0.71 H (0.0-0.50) mg/L FEU Lactate (0.20-2.00) mmol/L Sodium 139 (136-145) mmol/L Potassium 3.6 (3.5-5.1) mmol/L Chloride 103 (98-107) mmol/L Carbon Dioxide 25.7 (21.0-32.0) mmol/L BUN 13 (7.0-18.0) mg/dL Creatinine 0.9 (0.6-1.0) mg/dL Est Cr Clr Drug Dosing 69.00 mL/min Estimated GFR (MDRD) > 60.0 ml/min Glucose 107 H (74-106) mg/dL Calcium 8.5 (8.5-10.1) mg/dL Iron (50-175) ug/dL TIBC (250-450) ug/dL % Saturation (20-55) % Ferritin (8-252) ng/mL Total Bilirubin 0.6 (0.2-1.0) mg/dL AST 11 L (15-37) IU/L ALT 9 L (14-63) IU/L Alkaline Phosphatase 83 (46-116) U/L Total Protein 7.6 (6.4-8.2) g/dL Albumin 3.8 (3.4-5.0) g/dL Globulin 3.8 (2.6-4.0) g/dL Albumin/Globulin Ratio 1.0 (0.9-1.6) Urine Color Urine Appearance Urine pH (5.0-8.0) Ur Specific [place] (1.001-1.035) Urine Protein (NEGATIVE) mg/dL Urine Glucose (UA) (NEGATIVE) mg/dL Urine Ketones (NEGATIVE) mg/dL Urine Occult Blood (NEGATIVE) Urine Nitrite (NEGATIVE) Urine Bilirubin (NEGATIVE) Urine Urobilinogen (<2.0) EU/dL Ur Leukocyte Esterase (NEGATIVE) Urine RBC (0-2/HPF) Urine WBC (0-5/HPF) Ur Epithelial Cells (NONE-FEW) Urine Bacteria (NEGATIVE) Urine HCG, Qual (NEGATIVE) Influenza Type A RNA (NEGATIVE) Influenza Type B RNA (NEGATIVE) SARS-CoV-2 RNA (ADA) (NEGATIVE) 06/08/20 06/08/20 06/08/20 Range/Units 14:35 16:34 16:34 WBC (4.0-11.0) K/uL RBC (4.30-5.90) M/uL Hgb (12.0-16.0) g/dL Hct (36.0-46.0) % MCV (80.0-98.0) fL MCH (27.0-32.0) pg MCHC (31.0-37.0) g/dL RDW Std Deviation (28.0-62.0) fl RDW Coeff of [place] (11.0-15.0) % Plt Count (150-400) K/uL MPV (7.40-12.00) fL Neut % (Auto) (48.0-80.0) % Lymph % (Auto) (16.0-40.0) % [place] % (Auto) (0.0-15.0) % Eos % (Auto) (0.0-7.0) % Baso % (Auto) (0.0-1.5) % Neut # (Auto) (1.4-5.7) K/uL Lymph # (Auto) (0.6-2.4) K/uL [place] # (Auto) (0.0-0.8) K/uL Eos # (Auto) (0.0-0.7) K/uL Baso # (Auto) (0.0-0.1) K/uL Nucleated RBC % /100WBC Nucleated RBCs # K/uL D-Dimer, Quantitative (0.0-0.50) mg/L FEU Lactate (0.20-2.00) mmol/L Sodium (136-145) mmol/L Potassium (3.5-5.1) mmol/L Chloride (98-107) mmol/L Carbon Dioxide (21.0-32.0) mmol/L BUN (7.0-18.0) mg/dL Creatinine (0.6-1.0) mg/dL Est Cr Clr Drug Dosing mL/min Estimated GFR (MDRD) ml/min Glucose (74-106) mg/dL Calcium (8.5-10.1) mg/dL Iron (50-175) ug/dL TIBC (250-450) ug/dL % Saturation (20-55) % Ferritin (8-252) ng/mL Total Bilirubin (0.2-1.0) mg/dL AST (15-37) IU/L ALT (14-63) IU/L Alkaline Phosphatase (46-116) U/L Total Protein (6.4-8.2) g/dL Albumin (3.4-5.0) g/dL Globulin (2.6-4.0) g/dL Albumin/Globulin Ratio (0.9-1.6) Urine Color YELLOW Urine Appearance CLEAR Urine pH 5.0 (5.0-8.0) Ur Specific [place] 1.015 (1.001-1.035) Urine Protein NEGATIVE (NEGATIVE) mg/dL Urine Glucose (UA) NEGATIVE (NEGATIVE) mg/dL Urine Ketones NEGATIVE (NEGATIVE) mg/dL Urine Occult Blood TRACE-INTACT H (NEGATIVE) Urine Nitrite NEGATIVE (NEGATIVE) Urine Bilirubin NEGATIVE (NEGATIVE) Urine Urobilinogen 0.2 (<2.0) EU/dL Ur Leukocyte Esterase NEGATIVE (NEGATIVE) Urine RBC 0-1 (0-2/HPF) Urine WBC 0-1 (0-5/HPF) Ur Epithelial Cells RARE (NONE-FEW) Urine Bacteria FEW (NEGATIVE) Urine HCG, Qual NEGATIVE (NEGATIVE) Influenza Type A RNA NEGATIVE (NEGATIVE) Influenza Type B RNA NEGATIVE (NEGATIVE) SARS-CoV-2 RNA (ADA) NEGATIVE (NEGATIVE) 06/08/20 06/08/20 06/09/20 Range/Units 19:27 19:27 01:10 WBC (4.0-11.0) K/uL RBC (4.30-5.90) M/uL Hgb (12.0-16.0) g/dL Hct (36.0-46.0) % MCV (80.0-98.0) fL MCH (27.0-32.0) pg MCHC (31.0-37.0) g/dL RDW Std Deviation (28.0-62.0) fl RDW Coeff of [place] (11.0-15.0) % Plt Count (150-400) K/uL MPV (7.40-12.00) fL Neut % (Auto) (48.0-80.0) % Lymph % (Auto) (16.0-40.0) % [place] % (Auto) (0.0-15.0) % Eos % (Auto) (0.0-7.0) % Baso % (Auto) (0.0-1.5) % Neut # (Auto) (1.4-5.7) K/uL Lymph # (Auto) (0.6-2.4) K/uL [place] # (Auto) (0.0-0.8) K/uL Eos # (Auto) (0.0-0.7) K/uL Baso # (Auto) (0.0-0.1) K/uL Nucleated RBC % /100WBC Nucleated RBCs # K/uL D-Dimer, Quantitative (0.0-0.50) mg/L FEU Lactate 2.9 H* 0.8 (0.20-2.00) mmol/L Sodium (136-145) mmol/L Potassium (3.5-5.1) mmol/L Chloride (98-107) mmol/L Carbon Dioxide (21.0-32.0) mmol/L BUN (7.0-18.0) mg/dL Creatinine (0.6-1.0) mg/dL Est Cr Clr Drug Dosing mL/min Estimated GFR (MDRD) ml/min Glucose (74-106) mg/dL Calcium (8.5-10.1) mg/dL Iron 8 L (50-175) ug/dL TIBC 407 (250-450) ug/dL % Saturation 1.97 L (20-55) % Ferritin 8 (8-252) ng/mL Total Bilirubin (0.2-1.0) mg/dL AST (15-37) IU/L ALT (14-63) IU/L Alkaline Phosphatase (46-116) U/L Total Protein (6.4-8.2) g/dL Albumin (3.4-5.0) g/dL Globulin (2.6-4.0) g/dL Albumin/Globulin Ratio (0.9-1.6) Urine Color Urine Appearance Urine pH (5.0-8.0) Ur Specific [place] (1.001-1.035) Urine Protein (NEGATIVE) mg/dL Urine Glucose (UA) (NEGATIVE) mg/dL Urine Ketones (NEGATIVE) mg/dL Urine Occult Blood (NEGATIVE) Urine Nitrite (NEGATIVE) Urine Bilirubin (NEGATIVE) Urine Urobilinogen (<2.0) EU/dL Ur Leukocyte Esterase (NEGATIVE) Urine RBC (0-2/HPF) Urine WBC (0-5/HPF) Ur Epithelial Cells (NONE-FEW) Urine Bacteria (NEGATIVE) Urine HCG, Qual (NEGATIVE) Influenza Type A RNA (NEGATIVE) Influenza Type B RNA (NEGATIVE) SARS-CoV-2 RNA (ADA) (NEGATIVE) 06/09/20 06/09/20 Range/Units 05:40 05:40 WBC 17.46 H (4.0-11.0) K/uL RBC 3.67 L (4.30-5.90) M/uL Hgb 7.1 L (12.0-16.0) g/dL Hct 24.9 L (36.0-46.0) % MCV 67.8 L (80.0-98.0) fL MCH 19.3 L (27.0-32.0) pg MCHC 28.5 L (31.0-37.0) g/dL RDW Std Deviation 43.2 (28.0-62.0) fl RDW Coeff of [place] 17 H (11.0-15.0) % Plt Count 207 (150-400) K/uL MPV 11.30 (7.40-12.00) fL Neut % (Auto) 86.3 H (48.0-80.0) % Lymph % (Auto) 7.3 L (16.0-40.0) % [place] % (Auto) 6.1 (0.0-15.0) % Eos % (Auto) 0.1 (0.0-7.0) % Baso % (Auto) 0.2 (0.0-1.5) % Neut # (Auto) 15.1 H (1.4-5.7) K/uL Lymph # (Auto) 1.3 (0.6-2.4) K/uL [place] # (Auto) 1.1 H (0.0-0.8) K/uL Eos # (Auto) 0.0 (0.0-0.7) K/uL Baso # (Auto) 0.0 (0.0-0.1) K/uL Nucleated RBC % 0.0 /100WBC Nucleated RBCs # 0 K/uL D-Dimer, Quantitative (0.0-0.50) mg/L FEU Lactate (0.20-2.00) mmol/L Sodium 134 L (136-145) mmol/L Potassium 3.4 L (3.5-5.1) mmol/L Chloride 101 (98-107) mmol/L Carbon Dioxide 25.3 (21.0-32.0) mmol/L BUN 12 (7.0-18.0) mg/dL Creatinine 1.1 H (0.6-1.0) mg/dL Est Cr Clr Drug Dosing 55.97 mL/min Estimated GFR (MDRD) 56.5 ml/min Glucose 119 H (74-106) mg/dL Calcium 7.6 L (8.5-10.1) mg/dL Iron (50-175) ug/dL TIBC (250-450) ug/dL % Saturation (20-55) % Ferritin (8-252) ng/mL Total Bilirubin 0.6 (0.2-1.0) mg/dL AST 8 L (15-37) IU/L ALT 9 L (14-63) IU/L Alkaline Phosphatase 65 (46-116) U/L Total Protein 6.3 L (6.4-8.2) g/dL Albumin 3.0 L (3.4-5.0) g/dL Globulin 3.3 (2.6-4.0) g/dL Albumin/Globulin Ratio 0.9 (0.9-1.6) Urine Color Urine Appearance Urine pH (5.0-8.0) Ur Specific [place] (1.001-1.035) Urine Protein (NEGATIVE) mg/dL Urine Glucose (UA) (NEGATIVE) mg/dL Urine Ketones (NEGATIVE) mg/dL Urine Occult Blood (NEGATIVE) Urine Nitrite (NEGATIVE) Urine Bilirubin (NEGATIVE) Urine Urobilinogen (<2.0) EU/dL Ur Leukocyte Esterase (NEGATIVE) Urine RBC (0-2/HPF) Urine WBC (0-5/HPF) Ur Epithelial Cells (NONE-FEW) Urine Bacteria (NEGATIVE) Urine HCG, Qual (NEGATIVE) Influenza Type A RNA (NEGATIVE) Influenza Type B RNA (NEGATIVE) SARS-CoV-2 RNA (ADA) (NEGATIVE) Med Orders - Current: Current Medications Acetaminophen (Tylenol) 650 mg PO Q4H PRN PRN Reason: Pain (Mild 1-3)/fever Last Admin: 06/08/20 22:09 Dose: 650 mg Documented by: Albuterol/Ipratropium (Combivent Respimat) 0 gm INH Q4H PRN PRN Reason: Dyspnea Azithromycin (Zithromax) 500 mg PO Q24H [facility] Enoxaparin Sodium (Lovenox) 40 mg SUBCUT Q24H [facility] Last Admin: 06/08/20 20:16 Dose: 40 mg Documented by: Ceftriaxone Sodium/Dextrose 1 (gm/ Premix) 50 mls @ 100 mls/hr IV Q24H [facility] Sodium Chloride (Normal Saline) 1,000 mls @ 125 mls/hr IV ASDIRECTED [facility] Last Admin: 06/09/20 05:20 Dose: 125 mls/hr Documented by: Ibuprofen (Motrin) 400 mg PO Q6H PRN PRN Reason: Pain Last Admin: 06/09/20 01:25 Dose: 400 mg Documented by: Morphine Sulfate (Morphine) 2 mg IVPUSH Q4H PRN PRN Reason: Pain Last Admin: 06/09/20 07:29 Dose: 2 mg Documented by: Ondansetron HCl (Zofran) 4 mg IVPUSH Q4H PRN PRN Reason: Nausea Last Admin: 06/08/20 23:03 Dose: 4 mg Documented by: Polysaccharide Iron Complex (Ferrex 150) 150 mg PO DAILY [facility] Potassium Chloride (Klor-Con M20) 40 meq PO ONETIME ONE Stop: 06/09/20 09:01 Discontinued Medications Acetaminophen (Tylenol Extra Strength) 1,000 mg PO ONETIME ONE Stop: 06/08/20 18:32 Last Admin: 06/08/20 18:41 Dose: 1,000 mg Documented by: Azithromycin (Zithromax) 500 mg PO NOW STA Stop: 06/08/20 18:31 Last Admin: 06/08/20 18:41 Dose: 500 mg Documented by: Azithromycin (Zithromax) 500 mg PO Q24H [facility] Last Admin: 06/09/20 01:01 Dose: Not Given Documented by: Azithromycin (Zithromax) 500 mg PO Q24H [facility] Last Admin: 06/09/20 01:01 Dose: Not Given Documented by: Sodium Chloride (Normal Saline) 1,000 mls @ 999 mls/hr IV STAT ONE Stop: 06/08/20 14:47 Last Admin: 06/08/20 14:05 Dose: 999 mls/hr Documented by: Ceftriaxone Sodium/Dextrose 1 (gm/ Premix) 50 mls @ 100 mls/hr IV ONETIME ONE Stop: 06/08/20 17:34 Last Admin: 06/08/20 17:46 Dose: 100 mls/hr Documented by: Sodium Chloride (Normal Saline) 1,000 mls @ 125 mls/hr IV STAT ONE Stop: 06/09/20 02:30 Last Admin: 06/08/20 18:41 Dose: 125 mls/hr Documented by: Sodium Chloride (Normal Saline) 1,000 mls @ 125 mls/hr IV STAT [facility] Stop: 06/09/20 03:14 Last Admin: 06/08/20 20:19 Dose: 125 mls/hr Documented by: Ceftriaxone Sodium/Dextrose 1 (gm/ Premix) 50 mls @ 100 mls/hr IV Q24H [facility] Last Admin: 06/09/20 01:00 Dose: Not Given Documented by: Sodium Chloride (Normal Saline) 500 mls @ 999 mls/hr IV .Bolus ONE Stop: 06/08/20 23:51 Last Admin: 06/08/20 23:33 Dose: 999 mls/hr Documented by: Iopamidol (Isovue Multipack-370 (76%)) 100 ml IVPUSH ONETIME STA Stop: 06/08/20 17:29 Last Admin: 06/08/20 17:29 Dose: 100 ml Documented by: Ketorolac Tromethamine (Toradol) 30 mg IVPUSH ONETIME ONE Stop: 06/08/20 13:48 Last Admin: 06/08/20 14:06 Dose: 30 mg Documented by: Morphine Sulfate (Morphine) 4 mg IVPUSH ONETIME ONE Stop: 06/08/20 14:57 Last Admin: 06/08/20 15:01 Dose: 4 mg Documented by: Morphine Sulfate (Morphine) 4 mg IVPUSH ONETIME ONE Stop: 06/08/20 16:21 Last Admin: 06/08/20 16:40 Dose: 4 mg Documented by: Ondansetron HCl (Zofran) 4 mg IVPUSH ONETIME ONE Stop: 06/08/20 13:48 Last Admin: 06/08/20 14:06 Dose: 4 mg Documented by: Ondansetron HCl (Zofran) 4 mg IVPUSH ONETIME ONE Stop: 06/08/20 16:21 Last Admin: 06/08/20 16:41 Dose: 4 mg Documented by: - Exam General: Alert, Oriented, Cooperative, Mild Distress Lungs: Clear to Auscultation, Normal Respiratory Effort Cardiovascular: Regular Rate, Regular Rhythm GI/Abdominal Exam: Normal Bowel Sounds, Soft, Non-Tender, No Distention Extremities: Normal Inspection, No Pedal Edema Sepsis Event Note - Evaluation Sepsis Screening Result: No Definite Risk - Focused Exam Vital Signs: Vital Signs Temp Pulse Resp BP Pulse Ox Pulse Ox 06/09/20 04:14 36.8 C 88 17 103/58 L 98 06/08/20 23:49 99 06/08/20 23:25 36.9 C 90 17 115/65 99 - Problem List & Annotations (1) Pneumonia SNOMED Code(s): 651282701 Code(s): J18.9 - PNEUMONIA, UNSPECIFIED ORGANISM Status: Acute Current Vi sit: Yes (2) Nausea and vomiting SNOMED Code(s): 00175171 Code(s): R11.2 - NAUSEA WITH VOMITING, UNSPECIFIED Status: Acute Current Visit: Yes (3) Leiomyoma SNOMED Code(s): 064076429496444, 756371511103783 Code(s): D21.9 - BENIGN NEOPLASM OF CONNECTIVE AND OTHER SOFT TISSUE, UNSP Status: Acute Current Visit: Yes - Problem List Review Problem List Initiated/Reviewed/Updated: Yes - My Orders Last 24 Hours: My Active Orders 06/08/20 18:00 Albuterol/Ipratropium [Combivent Respimat] See Dose Instructions INH Q4H PRN 06/08/20 19:05 Oxygen Therapy [RC] PRN Up ad Inna [RC] ASDIRECTED VTE/DVT Education [RC] PER UNIT ROUTINE Vital Signs [RC] Q4H Acetaminophen [TylenoL] 650 mg PO Q4H PRN Ondansetron [Zofran] 4 mg IVPUSH Q4H PRN Resuscitation Status Routine 06/08/20 19:10 RT Incentive Spirometry [RC] ASDIRECTED 06/08/20 19:11 RT Post Treatment Assessment [RC] Click to Edit RT Pre-Treatment Assessment [RC] Click to Edit 06/08/20 19:15 Enoxaparin [Lovenox] 40 mg SUBCUT Q24H 06/09/20 Breakfast Clear Liquid Diet [DIET] 06/09/20 09:00 Iron Polysaccharides Complex [Ferrex 150] 150 mg PO DAILY Potassium Chloride [Klor-Con M20] 40 meq PO ONETIME ONE 06/09/20 17:00 cefTRIAXone [Rocephin in Dextrose,Iso-Osm 1 GM/50 ML] 1 gm Premix Bag 1 bag IV Q24H 06/09/20 18:30 Azithromycin [Zithromax] 500 mg PO Q24H 06/10/20 05:11 CBC WITH AUTO DIFF [HEME] AM CMP [COMPREHENSIVE METABOLIC PN,CMP] [CHEM] AM - Plan Plan:: Assessment and Plan: 1. Community-acquired pneumonia: - Continue supplemental oxygen prn, combivent q4 prn, rocephin and azithromycin. Use incentive spirometer. - COVID-19 and influenza test were negative. Will repeat COVID-19 test. - CXR negative. CT angio showed bilateral patchy opacities. 2. Nausea and vomiting: - Zofran prn. Will order clear liquid diet. Continue IV NS 125 cc/hr. 3. Microcytic anemia: - Hgb level 7.1 this AM down from 8.8. Patient reports history of heavy menstrual bleeding requiring changing tampon q15 min. Trans-vaginal ultrasound showed 9x7x8 cm uterine myoma. Will contact [employer] for recommendations. Will recheck H/H this afternoon and transfuse if Hgb < 7. - Iron supplement started. 4. Hypokalemia: - Will replete with PO KCl. 5. EULALIO: - Continue IV NS 125 cc/hr. Will monitor. 6. Right breast soft tissue nodule: - Will require outpatient evaluation with ultrasound. 7. Past medical history of asthma, anxiety and depression. 8. DVT prophylaxis: - Discontinue lovenox. SCD's for now in the setting of #3.
[2020-06-09] MEDS: Iron Polysaccharides Complex 150 MG Cap PO SCH (08:34)
[2020-06-09] MEDS: Ondansetron 4 MG/2 ML SDV IVPUSH PRN ×2 (08:43→18:44)
[2020-06-09] MEDS ORDERED: Potassium Chloride 20 MEQ Tab.ER PO ONE (09:00)
[2020-06-09] MEDS: Acetaminophen 325 MG Tab PO PRN ×2 (10:29→18:49)
[2020-06-09] MEDS: cefTRIAXone 1 GM in Premix Bag 1 BAG IV SCH (16:22)
[2020-06-09] MEDS: Azithromycin 250 MG Tab PO SCH (17:38)
[2020-06-10] MEDS: Ondansetron 4 MG/2 ML SDV IVPUSH PRN ×3 (01:49→11:32)
[2020-06-10] MEDS: Morphine 2 MG/ML SYRINGE IVPUSH PRN (01:51)
--- NOTE | 2020-06-10 05:33 | CONS ---
DATE OF CONSULTATION: 06/09/2020 DATE OF : 1985 PRIMARY CARE PHYSICIAN: Dora Oden NP For the purpose of this consultation, I interviewed the patient and I reviewed her lab work, and I reviewed her ultrasound results. BRIEF HISTORY: She is 34-year-old patient, para 3-0-0-3, all of them delivered vaginally, and the youngest one is 14 years old. Currently, she is not on any method of control. The patient is admitted to the hospital at this time because of diagnosis of pneumonia, and during the workup of the pneumonia, she was found out to be anemic with a hematocrit of 24.9 and hemoglobin of 7.1. The patient stated that she had a heavy period for the last few years and she bleeds 9 to 11 days, requiring her double protection. 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 Ultrasound shows enlarged uterus with multiple fibroids, mild thickening of the endometrium. I defer the examination for this patient until we see her in the clinic where we can do appropriate pelvic examination with a speculum and possible endometrial biopsy. I agree with the recommendation of transfusing the patient 2 units of packed cells to try to elevate her hematocrit to improve her healing from her pneumonia. I recommended for the patient to come to see me in the office hopefully within 1 week of her discharge, where we can do an appropriate assessment of her pelvic exam with a possible endometrial biopsy, and then we will manage the patient according to the result of the endometrial biopsy or the exam. I explained this approach to the patient, and she agreed to this management, and I discussed this consultation with Dr. Tesfaye. TRUMAN / [place] /[id number]
[2020-06-10] MEDS: Sodium Chloride 0.9% 1,000 ML IV SCH (06:20)
[2020-06-10] MEDS: Acetaminophen 325 MG Tab PO PRN ×3 (06:34→20:46)
[2020-06-10 07:11] LABS: BLOOD UREA NITROGEN,BUN 5 mg/dL (7.0-18.0); CARBON DIOXIDE,CO2 25.8 mmol/L (21.0-32.0); CHLORIDE,CL 106 mmol/L (98-107); GLUCOSE RANDOM 95 mg/dL (74-106); POTASSIUM,K 3.2 mmol/L (3.5-5.1); SODIUM,NA 140 mmol/L (136-145)
[2020-06-10] MEDS ORDERED: Potassium Chloride 20 MEQ Tab.ER PO ONE (07:24)
--- NOTE | 2020-06-10 08:23 | PCM.PN ---
- General Info Date of Service: 06/10/20 Subjective Update: Patient tolerated dinner last night. Complains of nausea and abdominal pain this morning. - Patient Data Vitals - Most Recent: Last Vital Signs Temp 36.9 C 06/10/20 04:00 Pulse 75 06/10/20 04:00 Resp 17 06/10/20 04:00 BP 107/59 L 06/10/20 04:00 Pulse Ox 97 06/10/20 04:00 Weight - Most Recent: 117.979 kg I&O - Last 24 Hours: Intake & Output 06/09/20 06/10/20 06/10/20 22:59 06:59 14:59 Intake Total 1100 2667 Output Total 1550 1550 Balance -450 1117 Lab Results Last 24 Hours: Laboratory Results - last 24 hr 06/09/20 06/09/20 06/09/20 Range/Units 11:32 13:13 15:15 WBC (4.0-11.0) K/uL RBC (4.30-5.90) M/uL Hgb 8.5 L (12.0-16.0) g/dL Hct 30.1 L (36.0-46.0) % MCV (80.0-98.0) fL MCH (27.0-32.0) pg MCHC (31.0-37.0) g/dL RDW Std Deviation (28.0-62.0) fl RDW Coeff of Hailee (11.0-15.0) % Plt Count (150-400) K/uL MPV (7.40-12.00) fL Neut % (Auto) (48.0-80.0) % Lymph % (Auto) (16.0-40.0) % Powell % (Auto) (0.0-15.0) % Eos % (Auto) (0.0-7.0) % Baso % (Auto) (0.0-1.5) % Neut # (Auto) (1.4-5.7) K/uL Lymph # (Auto) (0.6-2.4) K/uL Powell # (Auto) (0.0-0.8) K/uL Eos # (Auto) (0.0-0.7) K/uL Baso # (Auto) (0.0-0.1) K/uL Nucleated RBC % /100WBC Nucleated RBCs # K/uL Sodium (136-145) mmol/L Potassium (3.5-5.1) mmol/L Chloride (98-107) mmol/L Carbon Dioxide (21.0-32.0) mmol/L BUN (7.0-18.0) mg/dL Creatinine (0.6-1.0) mg/dL Est Cr Clr Drug Dosing mL/min Estimated GFR (MDRD) ml/min Glucose (74-106) mg/dL Calcium (8.5-10.1) mg/dL Total Bilirubin (0.2-1.0) mg/dL AST (15-37) IU/L ALT (14-63) IU/L Alkaline Phosphatase (46-116) U/L Total Protein (6.4-8.2) g/dL Albumin (3.4-5.0) g/dL Globulin (2.6-4.0) g/dL Albumin/Globulin Ratio (0.9-1.6) SARS-CoV-2 RNA (ADA) NEGATIVE (NEGATIVE) Blood Type O POSITIVE Antibody Screen NEGATIVE Crossmatch See Detail 06/10/20 06/10/20 Range/Units 06:15 06:15 WBC 9.91 (4.0-11.0) K/uL RBC 3.42 L (4.30-5.90) M/uL Hgb 6.5 L (12.0-16.0) g/dL Hct 23.4 L (36.0-46.0) % MCV 68.4 L (80.0-98.0) fL MCH 19.0 L (27.0-32.0) pg MCHC 27.8 L (31.0-37.0) g/dL RDW Std Deviation 43.5 (28.0-62.0) fl RDW Coeff of Hailee 17 H (11.0-15.0) % Plt Count 177 (150-400) K/uL MPV 10.80 (7.40-12.00) fL Neut % (Auto) 76.4 (48.0-80.0) % Lymph % (Auto) 15.1 L (16.0-40.0) % Powell % (Auto) 8.0 (0.0-15.0) % Eos % (Auto) 0.4 (0.0-7.0) % Baso % (Auto) 0.1 (0.0-1.5) % Neut # (Auto) 7.6 H (1.4-5.7) K/uL Lymph # (Auto) 1.5 (0.6-2.4) K/uL Powell # (Auto) 0.8 (0.0-0.8) K/uL Eos # (Auto) 0.0 (0.0-0.7) K/uL Baso # (Auto) 0.0 (0.0-0.1) K/uL Nucleated RBC % 0.0 /100WBC Nucleated RBCs # 0 K/uL Sodium 140 (136-145) mmol/L Potassium 3.2 L (3.5-5.1) mmol/L Chloride 106 (98-107) mmol/L Carbon Dioxide 25.8 (21.0-32.0) mmol/L BUN 5 L (7.0-18.0) mg/dL Creatinine 0.8 (0.6-1.0) mg/dL Est Cr Clr Drug Dosing 76.95 mL/min Estimated GFR (MDRD) > 60.0 ml/min Glucose 95 (74-106) mg/dL Calcium 7.4 L (8.5-10.1) mg/dL Total Bilirubin 0.2 (0.2-1.0) mg/dL AST 12 L (15-37) IU/L ALT 10 L (14-63) IU/L Alkaline Phosphatase 65 (46-116) U/L Total Protein 5.7 L (6.4-8.2) g/dL Albumin 2.4 L (3.4-5.0) g/dL Globulin 3.3 (2.6-4.0) g/dL Albumin/Globulin Ratio 0.7 L (0.9-1.6) SARS-CoV-2 RNA (ADA) (NEGATIVE) Blood Type Antibody Screen Crossmatch Chong Results Last 24 Hours: Microbiology 06/09/20 10:00 Stool Occult Blood (CHONG) - Final Stool / Feces Med Orders - Current: Current Medications Acetaminophen (Tylenol) 650 mg PO Q4H PRN PRN Reason: Pain (Mild 1-3)/fever Last Admin: 06/10/20 06:34 Dose: 650 mg Documented by: Albuterol/Ipratropium (Combivent Respimat) 0 gm INH Q4H PRN PRN Reason: Dyspnea Azithromycin (Zithromax) 500 mg PO Q24H [facility] TO [facility] Last Admin: 06/09/20 17:38 Dose: 500 mg Documented by: Ceftriaxone Sodium/Dextrose 1 (gm/ Premix) 50 mls @ 100 mls/hr IV Q24H [facility] Last Admin: 06/09/20 16:22 Dose: 100 mls/hr Documented by: Sodium Chloride (Normal Saline) 1,000 mls @ 125 mls/hr IV ASDIRECTED [facility] Last Admin: 06/10/20 06:20 Dose: 125 mls/hr Documented by: Ibuprofen (Motrin) 400 mg PO Q6H PRN PRN Reason: Pain Last Admin: 06/09/20 20:34 Dose: 400 mg Documented by: Morphine Sulfate (Morphine) 2 mg IVPUSH Q4H PRN PRN Reason: Pain Last Admin: 06/10/20 01:51 Dose: 2 mg Documented by: Ondansetron HCl (Zofran) 4 mg IVPUSH Q4H PRN PRN Reason: Nausea Last Admin: 06/10/20 06:32 Dose: 4 mg Documented by: Polysaccharide Iron Complex (Ferrex 150) 150 mg PO DAILY [facility] Last Admin: 06/09/20 08:34 Dose: 150 mg Documented by: Discontinued Medications Acetaminophen (Tylenol Extra Strength) 1,000 mg PO ONETIME ONE Stop: 06/08/20 18:32 Last Admin: 06/08/20 18:41 Dose: 1,000 mg Documented by: Azithromycin (Zithromax) 500 mg PO NOW STA Stop: 06/08/20 18:31 Last Admin: 06/08/20 18:41 Dose: 500 mg Documented by: Azithromycin (Zithromax) 500 mg PO Q24H [facility] Last Admin: 06/09/20 01:01 Dose: Not Given Documented by: Azithromycin (Zithromax) 500 mg PO Q24H [facility] Last Admin: 06/09/20 01:01 Dose: Not Given Documented by: Enoxaparin Sodium (Lovenox) 40 mg SUBCUT Q24H [facility] TO [facility] Last Admin: 06/08/20 20:16 Dose: 40 mg Documented by: Sodium Chloride (Normal Saline) 1,000 mls @ 999 mls/hr IV STAT ONE Stop: 06/08/20 14:47 Last Admin: 06/08/20 14:05 Dose: 999 mls/hr Documented by: Ceftriaxone Sodium/Dextrose 1 (gm/ Premix) 50 mls @ 100 mls/hr IV ONETIME ONE Stop: 06/08/20 17:34 Last Admin: 06/08/20 17:46 Dose: 100 mls/hr Documented by: Sodium Chloride (Normal Saline) 1,000 mls @ 125 mls/hr IV STAT ONE Stop: 06/09/20 02:30 Last Admin: 06/08/20 18:41 Dose: 125 mls/hr Documented by: Sodium Chloride (Normal Saline) 1,000 mls @ 125 mls/hr IV STAT SYLVIA Stop: 06/09/20 03:14 Last Admin: 06/08/20 20:19 Dose: 125 mls/hr Documented by: Ceftriaxone Sodium/Dextrose 1 (gm/ Premix) 50 mls @ 100 mls/hr IV Q24H [facility] Last Admin: 06/09/20 01:00 Dose: Not Given Documented by: Sodium Chloride (Normal Saline) 500 mls @ 999 mls/hr IV .Bolus ONE Stop: 06/08/20 23:51 Last Admin: 06/08/20 23:33 Dose: 999 mls/hr Documented by: Iopamidol (Isovue Multipack-370 (76%)) 100 ml IVPUSH ONETIME STA Stop: 06/08/20 17:29 Last Admin: 06/08/20 17:29 Dose: 100 ml Documented by: Ketorolac Tromethamine (Toradol) 30 mg IVPUSH ONETIME ONE Stop: 06/08/20 13:48 Last Admin: 06/08/20 14:06 Dose: 30 mg Documented by: Morphine Sulfate (Morphine) 4 mg IVPUSH ONETIME ONE Stop: 06/08/20 14:57 Last Admin: 06/08/20 15:01 Dose: 4 mg Documented by: Morphine Sulfate (Morphine) 4 mg IVPUSH ONETIME ONE Stop: 06/08/20 16:21 Last Admin: 06/08/20 16:40 Dose: 4 mg Documented by: Ondansetron HCl (Zofran) 4 mg IVPUSH ONETIME ONE Stop: 06/08/20 13:48 Last Admin: 06/08/20 14:06 Dose: 4 mg Documented by: Ondansetron HCl (Zofran) 4 mg IVPUSH ONETIME ONE Stop: 06/08/20 16:21 Last Admin: 06/08/20 16:41 Dose: 4 mg Documented by: Potassium Chloride (Klor-Con M20) 40 meq PO ONETIME ONE Stop: 06/09/20 09:01 Last Admin: 06/09/20 08:35 Dose: 40 meq Documented by: Potassium Chloride (Klor-Con M20) 40 meq PO ONETIME ONE Stop: 06/10/20 07:25 - Exam General: Alert, Oriented, Cooperative, No Acute Distress Lungs: Clear to Auscultation, Normal Respiratory Effort Cardiovascular: Regular Rate, Regular Rhythm GI/Abdominal Exam: Normal Bowel Sounds, Soft, Non-Tender, No Distention Extremities: Normal Inspection, No Pedal Edema Sepsis Event Note - Evaluation Sepsis Screening Result: No Definite Risk - Focused Exam Vital Signs: Vital Signs Temp Pulse Resp BP Pulse Ox 06/10/20 04:00 36.9 C 75 17 107/59 L 97 06/10/20 00:07 36.1 C 75 17 114/54 L 97 - Problem List & Annotations (1) Pneumonia SNOMED Code(s): 412250607 Code(s): J18.9 - PNEUMONIA, UNSPECIFIED ORGANISM Status: Acute Current Visit: Yes (2) Nausea and vomiting SNOMED Code(s): 30045962 Code(s): R11.2 - NAUSEA WITH VOMITING, UNSPECIFIED Status: Acute Current Visit: Yes (3) Leiomyoma SNOMED Code(s): 458987335871713, 809435790761836 Code(s): D21.9 - BENIGN NEOPLASM OF CONNECTIVE AND OTHER SOFT TISSUE, UNSP Status: Acute Current Visit: Yes - Problem List Review Problem List Initiated/Reviewed/Updated: Yes - My Orders Last 24 Hours: My Active Orders 06/09/20 09:00 Iron Polysaccharides Complex [Ferrex 150] 150 mg PO DAILY 06/09/20 11:35 Consult to Physician [CONS] Urgent 06/09/20 11:36 Antiembolic Devices [RC] PER UNIT ROUTINE Notify Provider Consults [RC] ASDIRECTED SCD [Sequential Compression Device] [OM.PC] Routine 06/09/20 13:13 RED BLOOD CELLS LP [BBK] Routine TYPE AND SCREEN [BBK] Routine 06/09/20 13:24 PATIENT RETYPE [BBK] Routine RED BLOOD CELLS LP [BBK] Routine 06/09/20 Dinner Soft Diet [DIET] 06/09/20 17:00 cefTRIAXone [Rocephin in Dextrose,Iso-Osm 1 GM/50 ML] 1 gm Premix Bag 1 bag IV Q24H 06/09/20 18:30 Azithromycin [Zithromax] 500 mg PO Q24H - Plan Plan:: Assessment and Plan: 1. Community-acquired pneumonia: - Supplemental oxygen prn, combivent q4 prn, rocephin, azithromycin and IS. Will order Tessalon pearls. - COVID-19 and influenza test were negative. Repeat COVID-19 test was negative. - CXR negative. CT angio showed bilateral patchy opacities. 2. Nausea and vomiting: - Zofran prn. Patient on soft diet. Continue IV NS 125 cc/hr. 3. Microcytic anemia: - Patient has history of heavy menstrual bleeding. Trans-vaginal ultrasound showed 9x7x8 cm uterine myoma. 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 Patient was not transfused yesterday as her Hgb level recheck in the afternoon was 8.5. Hgb level this morning is 6.5 so will transfuse 2 units PRBC's. - Fecal occult blood test negative. - Iron supplement started. 4. Hypokalemia: - Will replete with PO KCl. 5. EULALIO, resolved. 6. Right breast soft tissue nodule: - Will require outpatient evaluation with ultrasound. 7. Past medical history of asthma, anxiety and depression. 8. DVT prophylaxis: - SCD's for now in the setting of #3.
[2020-06-10] MEDS: Iron Polysaccharides Complex 150 MG Cap PO SCH (08:58)
[2020-06-10] MEDS: Benzonatate 100 MG Cap PO PRN ×2 (11:32→16:21)
[2020-06-10] MEDS: Pantoprazole 40 MG Tab.CR PO SCH (16:20)
[2020-06-10] MEDS: Ibuprofen 400 MG Tab PO PRN (16:20)
[2020-06-10] MEDS: Azithromycin 250 MG Tab PO SCH (17:33)
[2020-06-10] MEDS: cefTRIAXone 1 GM in Premix Bag 1 BAG IV SCH (18:38)
[2020-06-11] MEDS: Ondansetron 4 MG/2 ML SDV IVPUSH PRN ×2 (02:44→07:42)
[2020-06-11] MEDS: Benzonatate 100 MG Cap PO PRN ×3 (02:44→17:08)
[2020-06-11] MEDS: Acetaminophen 325 MG Tab PO PRN ×2 (02:44→17:08)
[2020-06-11] MEDS: Sodium Chloride 0.9% 1,000 ML IV SCH ×3 (02:47→22:15)
[2020-06-11 07:01] LABS: BLOOD UREA NITROGEN,BUN 4 mg/dL (7.0-18.0); CARBON DIOXIDE,CO2 25.1 mmol/L (21.0-32.0); CHLORIDE,CL 106 mmol/L (98-107); GLUCOSE RANDOM 98 mg/dL (74-106); POTASSIUM,K 3.2 mmol/L (3.5-5.1); SODIUM,NA 141 mmol/L (136-145)
[2020-06-11] MEDS ORDERED: Potassium Chloride 20 MEQ Tab.ER PO ONE (08:45)
[2020-06-11] MEDS: Iron Polysaccharides Complex 150 MG Cap PO SCH (09:12)
[2020-06-11] MEDS: Pantoprazole 40 MG Tab.CR PO SCH (09:12)
--- NOTE | 2020-06-11 11:13 | PCM.PN ---
- General Info Date of Service: 06/11/20 Admission Dx/Problem (Free Text): Admission Diagnosis/Problem Admission Diagnosis/Problem Pneumonia Subjective Update: Patiwnt seen at bedside, no acute distress but very tearful, states she has "other stuff going on". No N/V/ no bloody stools - Review of Systems General: Reports: Weakness, Fatigue. Denies: Fever Pulmonary: Denies: Shortness of Breath, Pleuritic Chest Pain Gastrointestinal: Denies: Abdominal Pain, Constipation Genitourinary: Denies: Dysuria, Frequency, Burning Musculoskeletal: Denies: Neck Pain, Shoulder Pain, Arm Pain Skin: Denies: Cyanosis, Jaundice Psychiatric: Denies: Confusion, Depression, Agitation - Patient Data Vitals - Most Recent: Last Vital Signs Temp 35.9 C L 06/11/20 07:00 Pulse 84 06/11/20 07:00 Resp 18 06/11/20 07:00 BP 116/59 L 06/11/20 07:00 Pulse Ox 100 06/11/20 07:00 Weight - Most Recent: 117.979 kg I&O - Last 24 Hours: Intake & Output 06/10/20 06/11/20 06/11/20 22:59 06:59 14:59 Intake Total 1980 2400 Output Total 1600 1300 Balance 380 1100 Lab Results Last 24 Hours: Laboratory Results - last 24 hr 06/09/20 06/10/20 06/11/20 Range/Units 13:13 09:12 06:00 WBC 11.42 H (4.0-11.0) K/uL RBC 3.93 L (4.30-5.90) M/uL Hgb 9.3 L 8.3 L (12.0-16.0) g/dL Hct 31.3 L 27.8 L (36.0-46.0) % MCV 70.7 L (80.0-98.0) fL MCH 21.1 L (27.0-32.0) pg MCHC 29.9 L (31.0-37.0) g/dL RDW Std Deviation 48.4 (28.0-62.0) fl RDW Coeff of Hailee 18 H (11.0-15.0) % Plt Count 214 (150-400) K/uL MPV 11.40 (7.40-12.00) fL Neut % (Auto) 70.6 (48.0-80.0) % Lymph % (Auto) 17.5 (16.0-40.0) % [place]iscoe % (Auto) 10.2 (0.0-15.0) % Eos % (Auto) 1.5 (0.0-7.0) % Baso % (Auto) 0.2 (0.0-1.5) % Neut # (Auto) 8.1 H (1.4-5.7) K/uL Lymph # (Auto) 2.0 (0.6-2.4) K/uL [place]iscoe # (Auto) 1.2 H (0.0-0.8) K/uL Eos # (Auto) 0.2 (0.0-0.7) K/uL Baso # (Auto) 0.0 (0.0-0.1) K/uL Nucleated RBC % 0.0 /100WBC Nucleated RBCs # 0 K/uL Sodium (136-145) mmol/L Potassium (3.5-5.1) mmol/L Chloride (98-107) mmol/L Carbon Dioxide (21.0-32.0) mmol/L BUN (7.0-18.0) mg/dL Creatinine (0.6-1.0) mg/dL Est Cr Clr Drug Dosing mL/min Estimated GFR (MDRD) ml/min Glucose (74-106) mg/dL Calcium (8.5-10.1) mg/dL Total Bilirubin (0.2-1.0) mg/dL AST (15-37) IU/L ALT (14-63) IU/L Alkaline Phosphatase (46-116) U/L Total Protein (6.4-8.2) g/dL Albumin (3.4-5.0) g/dL Globulin (2.6-4.0) g/dL Albumin/Globulin Ratio (0.9-1.6) Blood Type O POSITIVE Antibody Screen NEGATIVE Crossmatch See Detail 06/11/20 Range/Units 06:00 WBC (4.0-11.0) K/uL RBC (4.30-5.90) M/uL Hgb (12.0-16.0) g/dL Hct (36.0-46.0) % MCV (80.0-98.0) fL MCH (27.0-32.0) pg MCHC (31.0-37.0) g/dL RDW Std Deviation (28.0-62.0) fl RDW Coeff of Hailee (11.0-15.0) % Plt Count (150-400) K/uL MPV (7.40-12.00) fL Neut % (Auto) (48.0-80.0) % Lymph % (Auto) (16.0-40.0) % [place]iscoe % (Auto) (0.0-15.0) % Eos % (Auto) (0.0-7.0) % Baso % (Auto) (0.0-1.5) % Neut # (Auto) (1.4-5.7) K/uL Lymph # (Auto) (0.6-2.4) K/uL [place]iscoe # (Auto) (0.0-0.8) K/uL Eos # (Auto) (0.0-0.7) K/uL Baso # (Auto) (0.0-0.1) K/uL Nucleated RBC % /100WBC Nucleated RBCs # K/uL Sodium 141 (136-145) mmol/L Potassium 3.2 L (3.5-5.1) mmol/L Chloride 106 (98-107) mmol/L Carbon Dioxide 25.1 (21.0-32.0) mmol/L BUN 4 L (7.0-18.0) mg/dL Creatinine 0.8 (0.6-1.0) mg/dL Est Cr Clr Drug Dosing 76.95 mL/min Estimated GFR (MDRD) > 60.0 ml/min Glucose 98 (74-106) mg/dL Calcium 7.6 L (8.5-10.1) mg/dL Total Bilirubin 0.3 (0.2-1.0) mg/dL AST 10 L (15-37) IU/L ALT 12 L (14-63) IU/L Alkaline Phosphatase 68 (46-116) U/L Total Protein 6.0 L (6.4-8.2) g/dL Albumin 2.4 L (3.4-5.0) g/dL Globulin 3.6 (2.6-4.0) g/dL Albumin/Globulin Ratio 0.7 L (0.9-1.6) Blood Type Antibody Screen Crossmatch Chong Results Last 24 Hours: Microbiology 06/09/20 10:13 Aerobic Blood Culture - Preliminary Blood - Venous - Lab Draw NO GROWTH AFTER 2 DAYS Anaerobic Blood Culture - Preliminary NO GROWTH AFTER 2 DAYS 06/09/20 10:02 Aerobic Blood Culture - Preliminary Blood - Venous NO GROWTH AFTER 2 DAYS Anaerobic Blood Culture - Preliminary NO GROWTH AFTER 2 DAYS Med Orders - Current: Current Medications Acetaminophen (Tylenol) 650 mg PO Q4H PRN PRN Reason: Pain (Mild 1-3)/fever Last Admin: 06/11/20 02:44 Dose: 650 mg Documented by: Albuterol/Ipratropium (Combivent Respimat) 0 gm INH Q4H PRN PRN Reason: Dyspnea Azithromycin (Zithromax) 500 mg PO Q24H [facility] Last Admin: 06/10/20 17:33 Dose: 500 mg Documented by: Benzonatate (Tessalon Perles) 100 mg PO TID PRN PRN Reason: Cough Last Admin: 06/11/20 02:44 Dose: 100 mg Documented by: Ceftriaxone Sodium/Dextrose 1 (gm/ Premix) 50 mls @ 100 mls/hr IV Q24H [facility] Last Admin: 06/10/20 18:38 Dose: 100 mls/hr Documented by: Sodium Chloride (Normal Saline) 1,000 mls @ 125 mls/hr IV ASDIRECTED [facility] Last Admin: 06/11/20 02:47 Dose: 125 mls/hr Documented by: Iron Dextran 100 mg/ Sodium (Chloride) 252 mls @ 42 mls/hr IV ONETIME ONE Stop: 06/11/20 17:02 Ibuprofen (Motrin) 400 mg PO Q6H PRN PRN Reason: Pain Last Admin: 06/10/20 16:20 Dose: 400 mg Documented by: Morphine Sulfate (Morphine) 2 mg IVPUSH Q4H PRN PRN Reason: Pain Last Admin: 06/10/20 01:51 Dose: 2 mg Documented by: Ondansetron HCl (Zofran) 4 mg IVPUSH Q4H PRN PRN Reason: Nausea Last Admin: 06/11/20 07:42 Dose: 4 mg Documented by: Pantoprazole Sodium (Protonix) 40 mg PO DAILY [facility] Last Admin: 06/11/20 09:12 Dose: 40 mg Documented by: Polysaccharide Iron Complex (Ferrex 150) 150 mg PO DAILY [facility] Last Admin: 06/11/20 09:12 Dose: 150 mg Documented by: Discontinued Medications Acetaminophen (Tylenol Extra Strength) 1,000 mg PO ONETIME ONE Stop: 06/08/20 18:32 Last Admin: 06/08/20 18:41 Dose: 1,000 mg Documented by: Azithromycin (Zithromax) 500 mg PO NOW STA Stop: 06/08/20 18:31 Last Admin: 06/08/20 18:41 Dose: 500 mg Documented by: Azithromycin (Zithromax) 500 mg PO Q24H [facility] Last Admin: 06/09/20 01:01 Dose: Not Given Documented by: Azithromycin (Zithromax) 500 mg PO Q24H [facility] Last Admin: 06/09/20 01:01 Dose: Not Given Documented by: Enoxaparin Sodium (Lovenox) 40 mg SUBCUT Q24H [facility] Last Admin: 06/08/20 20:16 Dose: 40 mg Documented by: Sodium Chloride (Normal Saline) 1,000 mls @ 999 mls/hr IV STAT ONE Stop: 06/08/20 14:47 Last Admin: 06/08/20 14:05 Dose: 999 mls/hr Documented by: Ceftriaxone Sodium/Dextrose 1 (gm/ Premix) 50 mls @ 100 mls/hr IV ONETIME ONE Stop: 06/08/20 17:34 Last Admin: 06/08/20 17:46 Dose: 100 mls/hr Documented by: Sodium Chloride (Normal Saline) 1,000 mls @ 125 mls/hr IV STAT ONE Stop: 06/09/20 02:30 Last Admin: 06/08/20 18:41 Dose: 125 mls/hr Documented by: Sodium Chloride (Normal Saline) 1,000 mls @ 125 mls/hr IV STAT SYLVIA Stop: 06/09/20 03:14 Last Admin: 06/08/20 20:19 Dose: 125 mls/hr Documented by: Ceftriaxone Sodium/Dextrose 1 (gm/ Premix) 50 mls @ 100 mls/hr IV Q24H [facility] Last Admin: 06/09/20 01:00 Dose: Not Given Documented by: Sodium Chloride (Normal Saline) 500 mls @ 999 mls/hr IV .Bolus ONE Stop: 06/08/20 23:51 Last Admin: 06/08/20 23:33 Dose: 999 mls/hr Documented by: Iopamidol (Isovue Multipack-370 (76%)) 100 ml IVPUSH ONETIME STA Stop: 06/08/20 17:29 Last Admin: 06/08/20 17:29 Dose: 100 ml Documented by: Ketorolac Tromethamine (Toradol) 30 mg IVPUSH ONETIME ONE Stop: 06/08/20 13:48 Last Admin: 06/08/20 14:06 Dose: 30 mg Documented by: Morphine Sulfate (Morphine) 4 mg IVPUSH ONETIME ONE Stop: 06/08/20 14:57 Last Admin: 06/08/20 15:01 Dose: 4 mg Documented by: Morphine Sulfate (Morphine) 4 mg IVPUSH ONETIME ONE Stop: 06/08/20 16:21 Last Admin: 06/08/20 16:40 Dose: 4 mg Documented by: Ondansetron HCl (Zofran) 4 mg IVPUSH ONETIME ONE Stop: 06/08/20 13:48 Last Admin: 06/08/20 14:06 Dose: 4 mg Documented by: Ondansetron HCl (Zofran) 4 mg IVPUSH ONETIME ONE Stop: 06/08/20 16:21 Last Admin: 06/08/20 16:41 Dose: 4 mg Documented by: Potassium Chloride (Klor-Con M20) 40 meq PO ONETIME ONE Stop: 06/09/20 09:01 Last Admin: 06/09/20 08:35 Dose: 40 meq Documented by: Potassium Chloride (Klor-Con M20) 40 meq PO ONETIME ONE Stop: 06/10/20 07:25 Last Admin: 06/10/20 08:58 Dose: 40 meq Documented by: Potassium Chloride (Klor-Con M20) 40 meq PO ONETIME ONE Stop: 06/11/20 08:46 Last Admin: 06/11/20 09:12 Dose: 40 meq Documented by: - Exam General: Alert, Oriented Neck: Supple, Trachea Midline Lungs: Clear to Auscultation Cardiovascular: Regular Rate, Regular Rhythm GI/Abdominal Exam: Normal Bowel Sounds, Soft, Non-Tender Sepsis Event Note - Evaluation Sepsis Screening Result: No Definite Risk - Focused Exam Vital Signs: Vital Signs Temp Pulse Resp BP Pulse Ox 06/11/20 07:00 35.9 C L 84 18 116/59 L 100 06/11/20 03:49 36.4 C 70 17 129/64 99 06/11/20 00:00 36.2 C 70 18 97/60 97 - Problem List Review Problem List Initiated/Reviewed/Updated: Yes - My Orders Last 24 Hours: My Active Orders 06/11/20 11:03 Iron Dextran Complex [Dexferrum] 100 mg Sodium Chloride 0.9% [Normal Saline] 250 ml IV ONETIME 06/11/20 19:00 HEMOGLOBIN/HEMATOCRIT,HH [HEME] Routine - Plan Plan:: Assessment and Plan: 1. Community-acquired pneumonia: - cont combivent q4 prn, rocephin, azithromycin and IS. - COVID-19 and influenza test were negative. Repeat COVID-19 test was negative. - CXR negative. CT angio showed bilateral patchy opacities. 2. Nausea and vomiting: - Zofran prn. Patient on soft diet. Continue IV NS 125 cc/hr. 3. Microcytic anemia: -s/p blood transfusion 2 PRBC - Patient has history of heavy menstrual bleeding. Trans-vaginal ultrasound showed 9x7x8 cm uterine myoma. 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 - Fecal occult blood test negative. - Iron supplement started, will also transfuse IV iron today - recheck Hb in evening 4. Hypokalemia: - replete with PO KCl. 5. EULALIO, resolved. 6. Right breast soft tissue nodule: - Will require outpatient evaluation with ultrasound. 7. Past medical history of asthma, anxiety and depression. 8. DVT prophylaxis: - SCD's for now in the setting of #3. Likely dc tomorrow
[2020-06-11] MEDS ORDERED: Iron Sucrose Complex 100 MG in Sodium Chloride 0.9% 100 ML IV ONE (11:30)
[2020-06-11] MEDS: cefTRIAXone 1 GM in Premix Bag 1 BAG IV SCH (17:08)
[2020-06-11] MEDS: Azithromycin 250 MG Tab PO SCH (18:51)
[2020-06-12] MEDS: Ondansetron 4 MG/2 ML SDV IVPUSH PRN ×2 (00:19→07:19)
[2020-06-12] MEDS: Acetaminophen 325 MG Tab PO PRN (00:19)
[2020-06-12] MEDS: Benzonatate 100 MG Cap PO PRN (01:22)
[2020-06-12] MEDS: Ibuprofen 400 MG Tab PO PRN (01:27)
[2020-06-12 06:45] LABS: BLOOD UREA NITROGEN,BUN 2 mg/dL (7.0-18.0); CARBON DIOXIDE,CO2 26.2 mmol/L (21.0-32.0); CHLORIDE,CL 107 mmol/L (98-107); GLUCOSE RANDOM 96 mg/dL (74-106); POTASSIUM,K 3.4 mmol/L (3.5-5.1); SODIUM,NA 143 mmol/L (136-145)
--- NOTE | 2020-06-12 08:02 | PCM.PN ---
- General Info Date of Service: 06/12/20 Subjective Update: Reports feeling tired this morning but denies having any fevers, chills, vomiting, SOB, chest pain, abdominal pain or vaginal bleeding. Tolerating oral diet. - Patient Data Vitals - Most Recent: Last Vital Signs Temp 36.3 C 06/12/20 07:13 Pulse 73 06/12/20 07:13 Resp 18 06/12/20 07:13 BP 108/71 06/12/20 07:13 Pulse Ox 99 06/12/20 07:13 Weight - Most Recent: 117.979 kg I&O - Last 24 Hours: Intake & Output 06/11/20 06/12/20 06/12/20 22:59 06:59 14:59 Intake Total 1960 2072 Output Total 1100 1750 Balance 860 322 Lab Results Last 24 Hours: Laboratory Results - last 24 hr 06/11/20 06/12/20 06/12/20 Range/Units 19:10 06:00 06:00 WBC 8.68 (4.0-11.0) K/uL RBC 3.95 L (4.30-5.90) M/uL Hgb 9.0 L 8.3 L (12.0-16.0) g/dL Hct 30.0 L 28.1 L (36.0-46.0) % MCV 71.1 L (80.0-98.0) fL MCH 21.0 L (27.0-32.0) pg MCHC 29.5 L (31.0-37.0) g/dL RDW Std Deviation 49.6 (28.0-62.0) fl RDW Coeff of Hailee 19 H (11.0-15.0) % Plt Count 219 (150-400) K/uL MPV 11.10 (7.40-12.00) fL Neut % (Auto) 61.7 (48.0-80.0) % Lymph % (Auto) 25.8 (16.0-40.0) % [facility] % (Auto) 9.6 (0.0-15.0) % Eos % (Auto) 2.4 (0.0-7.0) % Baso % (Auto) 0.5 (0.0-1.5) % Neut # (Auto) 5.4 (1.4-5.7) K/uL Lymph # (Auto) 2.2 (0.6-2.4) K/uL [facility] # (Auto) 0.8 (0.0-0.8) K/uL Eos # (Auto) 0.2 (0.0-0.7) K/uL Baso # (Auto) 0.0 (0.0-0.1) K/uL Nucleated RBC % 0.0 /100WBC Nucleated RBCs # 0 K/uL Sodium 143 (136-145) mmol/L Potassium 3.4 L (3.5-5.1) mmol/L Chloride 107 (98-107) mmol/L Carbon Dioxide 26.2 (21.0-32.0) mmol/L BUN 2 L (7.0-18.0) mg/dL Creatinine 0.8 (0.6-1.0) mg/dL Est Cr Clr Drug Dosing 76.95 mL/min Estimated GFR (MDRD) > 60.0 ml/min Glucose 96 (74-106) mg/dL Calcium 7.7 L (8.5-10.1) mg/dL Phosphorus 3.7 (2.6-4.7) mg/dL Magnesium 2.1 (1.8-2.4) mg/dL [facility] Results Last 24 Hours: Microbiology 06/09/20 10:13 Aerobic Blood Culture - Preliminary Blood - Venous - Lab Draw NO GROWTH AFTER 2 DAYS Anaerobic Blood Culture - Preliminary NO GROWTH AFTER 2 DAYS 06/09/20 10:02 Aerobic Blood Culture - Preliminary Blood - Venous NO GROWTH AFTER 2 DAYS Anaerobic Blood Culture - Preliminary NO GROWTH AFTER 2 DAYS Med Orders - Current: Current Medications Acetaminophen (Tylenol) 650 mg PO Q4H PRN PRN Reason: Pain (Mild 1-3)/fever Last Admin: 06/12/20 00:19 Dose: 650 mg Documented by: Albuterol/Ipratropium (Combivent Respimat) 0 gm INH Q4H PRN PRN Reason: Dyspnea Azithromycin (Zithromax) 500 mg PO Q24H [facility] Last Admin: 06/11/20 18:51 Dose: 500 mg Documented by: Benzonatate (Tessalon Perles) 100 mg PO TID PRN PRN Reason: Cough Last Admin: 06/12/20 01:22 Dose: 100 mg Documented by: Ceftriaxone Sodium/Dextrose 1 (gm/ Premix) 50 mls @ 100 mls/hr IV Q24H [facility] Last Admin: 06/11/20 17:08 Dose: 100 mls/hr Documented by: Ibuprofen (Motrin) 400 mg PO Q6H PRN PRN Reason: Pain Last Admin: 06/12/20 01:27 Dose: 400 mg Documented by: Morphine Sulfate (Morphine) 2 mg IVPUSH Q4H PRN PRN Reason: Pain Last Admin: 06/10/20 01:51 Dose: 2 mg Documented by: Ondansetron HCl (Zofran) 4 mg IVPUSH Q4H PRN PRN Reason: Nausea Last Admin: 06/12/20 07:19 Dose: 4 mg Documented by: Pantoprazole Sodium (Protonix) 40 mg PO DAILY [facility] Last Admin: 06/11/20 09:12 Dose: 40 mg Documented by: Polysaccharide Iron Complex (Ferrex 150) 150 mg PO DAILY [facility] Last Admin: 06/11/20 09:12 Dose: 150 mg Documented by: Potassium Chloride (Klor-Con M20) 40 meq PO ONETIME ONE Stop: 06/12/20 09:01 Discontinued Medications Acetaminophen (Tylenol Extra Strength) 1,000 mg PO ONETIME ONE Stop: 06/08/20 18:32 Last Admin: 06/08/20 18:41 Dose: 1,000 mg Documented by: Azithromycin (Zithromax) 500 mg PO NOW STA Stop: 06/08/20 18:31 Last Admin: 06/08/20 18:41 Dose: 500 mg Documented by: Azithromycin (Zithromax) 500 mg PO Q24H [facility] Last Admin: 06/09/20 01:01 Dose: Not Given Documented by: Azithromycin (Zithromax) 500 mg PO Q24H [facility] Last Admin: 06/09/20 01:01 Dose: Not Given Documented by: Enoxaparin Sodium (Lovenox) 40 mg SUBCUT Q24H [facility] Last Admin: 06/08/20 20:16 Dose: 40 mg Documented by: Sodium Chloride (Normal Saline) 1,000 mls @ 999 mls/hr IV STAT ONE Stop: 06/08/20 14:47 Last Admin: 06/08/20 14:05 Dose: 999 mls/hr Documented by: Ceftriaxone Sodium/Dextrose 1 (gm/ Premix) 50 mls @ 100 mls/hr IV ONETIME ONE Stop: 06/08/20 17:34 Last Admin: 06/08/20 17:46 Dose: 100 mls/hr Documented by: Sodium Chloride (Normal Saline) 1,000 mls @ 125 mls/hr IV STAT ONE Stop: 06/09/20 02:30 Last Admin: 06/08/20 18:41 Dose: 125 mls/hr Documented by: Sodium Chloride (Normal Saline) 1,000 mls @ 125 mls/hr IV STAT [facility] Stop: 06/09/20 03:14 Last Admin: 06/08/20 20:19 Dose: 125 mls/hr Documented by: Ceftriaxone Sodium/Dextrose 1 (gm/ Premix) 50 mls @ 100 mls/hr IV Q24H [facility] Last Admin: 06/09/20 01:00 Dose: Not Given Documented by: Sodium Chloride (Normal Saline) 500 mls @ 999 mls/hr IV .Bolus ONE Stop: 06/08/20 23:51 Last Admin: 06/08/20 23:33 Dose: 999 mls/hr Documented by: Sodium Chloride (Normal Saline) 1,000 mls @ 125 mls/hr IV ASDIRECTED [facility] Last Infusion: 06/12/20 02:10 Dose: 0 mls/hr Documented by: Iron Sucrose 100 mg/ Sodium (Chloride) 105 mls @ 105 mls/hr IV ONETIME ONE Stop: 06/11/20 12:29 Last Admin: 06/11/20 11:49 Dose: 105 mls/hr Documented by: Iopamidol (Isovue Multipack-370 (76%)) 100 ml IVPUSH ONETIME STA Stop: 06/08/20 17:29 Last Admin: 06/08/20 17:29 Dose: 100 ml Documented by: Ketorolac Tromethamine (Toradol) 30 mg IVPUSH ONETIME ONE Stop: 06/08/20 13:48 Last Admin: 06/08/20 14:06 Dose: 30 mg Documented by: Morphine Sulfate (Morphine) 4 mg IVPUSH ONETIME ONE Stop: 06/08/20 14:57 Last Admin: 06/08/20 15:01 Dose: 4 mg Documented by: Morphine Sulfate (Morphine) 4 mg IVPUSH ONETIME ONE Stop: 06/08/20 16:21 Last Admin: 06/08/20 16:40 Dose: 4 mg Documented by: Ondansetron HCl (Zofran) 4 mg IVPUSH ONETIME ONE Stop: 06/08/20 13:48 Last Admin: 06/08/20 14:06 Dose: 4 mg Documented by: Ondansetron HCl (Zofran) 4 mg IVPUSH ONETIME ONE Stop: 06/08/20 16:21 Last Admin: 06/08/20 16:41 Dose: 4 mg Documented by: Potassium Chloride (Klor-Con M20) 40 meq PO ONETIME ONE Stop: 06/09/20 09:01 Last Admin: 06/09/20 08:35 Dose: 40 meq Documented by: Potassium Chloride (Klor-Con M20) 40 meq PO ONETIME ONE Stop: 06/10/20 07:25 Last Admin: 06/10/20 08:58 Dose: 40 meq Documented by: Potassium Chloride (Klor-Con M20) 40 meq PO ONETIME ONE Stop: 06/11/20 08:46 Last Admin: 06/11/20 09:12 Dose: 40 meq Documented by: - Exam General: Alert, Oriented, Cooperative, No Acute Distress Lungs: Clear to Auscultation, Normal Respiratory Effort Cardiovascular: Regular Rate, Regular Rhythm GI/Abdominal Exam: Normal Bowel Sounds, Soft, Non-Tender, No Distention Sepsis Event Note - Evaluation Sepsis Screening Result: No Definite Risk - Focused Exam Vital Signs: Vital Signs Temp Pulse Resp BP Pulse Ox 06/12/20 07:13 36.3 C 73 18 108/71 99 06/12/20 04:00 36.7 C 68 18 112/62 98 06/11/20 23:56 76 18 121/62 98 - Problem List & Annotations (1) Pneumonia SNOMED Code(s): 319147227 Code(s): J18.9 - PNEUMONIA, UNSPECIFIED ORGANISM Status: Acute Current Visit: Yes (2) Nausea and vomiting SNOMED Code(s): 43015781 Code(s): R11.2 - NAUSEA WITH VOMITING, UNSPECIFIED Status: Acute Current Visit: Yes (3) Leiomyoma SNOMED Code(s): 023469543319751, 316757315716807 Code(s): D21.9 - BENIGN NEOPLASM OF CONNECTIVE AND OTHER SOFT TISSUE, UNSP Status: Acute Current Visit: Yes - Problem List Review Problem List Initiated/Reviewed/Updated: Yes - My Orders Last 24 Hours: My Active Orders 06/12/20 Breakfast Regular Diet [DIET] 06/12/20 09:00 Potassium Chloride [Klor-Con M20] 40 meq PO ONETIME ONE 06/13/20 05:11 BASIC METABOLIC PANEL,BMP [CHEM] AM CBC WITH AUTO DIFF [HEME] AM MAGNESIUM [CHEM] AM - Plan Plan:: Assessment and Plan: 1. Community-acquired pneumonia: - Will continue Combivent q4 prn, Rocephin, azithromycin and IS. - COVID-19 test negative x 2. Influenza test were negative. - CXR negative. - CT angio showed bilateral patchy opacities. 2. Microcytic anemia s/p transfusion of 2 units PRBC's: - Patient has history of heavy menstrual bleeding. Trans-vaginal ultrasound showed 9x7x8 cm uterine myoma. [employer] Dr. Montanez consulted and will require close follow-up with him once discharged. - Fecal occult blood test negative. - Iron supplement started. Iron transfusion given yesterday. 3. Nausea and vomiting, improved: - Zofran prn. Advance to regular diet. 4. Hypokalemia: - replete with PO KCl 40 mEq x1. 5. Right breast soft tissue nodule: - Will require outpatient evaluation with ultrasound. 6. Past medical history of asthma, anxiety and depression. 7. DVT prophylaxis: - SCD's for now in the setting of #3.
[2020-06-12] MEDS: Iron Polysaccharides Complex 150 MG Cap PO SCH (08:18)
[2020-06-12] MEDS: Pantoprazole 40 MG Tab.CR PO SCH (08:18)
[2020-06-12] MEDS ORDERED: Potassium Chloride 20 MEQ Tab.ER PO ONE (09:00)
--- NOTE | 2020-06-12 11:39 | PCM.DCSUM1 ---
<Darinel Stack - Last Filed: 06/12/20 13:11> Discharge Summary - Hospital Course Free Text/Narrative:: 34-year-old female admitted for community acquired pneumonia. She has a PMH of asthma, anxiety and depression. She was treated with Combivent q4 prn, rocephin and azithromycin. CT angio negative for PE. COVID-19 test negative x 2. Patient also noted to have microcytic anemia and Hgb level of 6.5. She was transfused with 2 units of PRBC's and post-transfusion hemoglobins remained stable. Fecal occult blood test negative. She was noted to have low iron so was started on PO iron supplement and given IV iron infusion. Patient has history of heavy menstrual bleeding. Trans-vaginal ultrasound showed 9x7x8 cm uterine myoma. OB- [employer] Dr. Montanez consulted and recommended close follow-up with him once discharged. She also has a right breast soft tissue nodule and will require outpatient evaluation with either ultrasound or mammogram. These findings were explained to patient. She was discharged in stable condition with 3 more days of cefdinir and azithromycin. Recommended repeat CBC in 1 week. Patient's OB-[employer] appointment was made prior to discharge. - Discharge Data Discharge Date: 06/12/20 Discharge Disposition: Home, Self-Care 01 Condition: Stable - Referral to Home Health Primary Care Physician: Dora Oden NP - Discharge Diagnosis/Problem(s) (1) Pneumonia SNOMED Code(s): 424985968 ICD Code: J18.9 - PNEUMONIA, UNSPECIFIED ORGANISM Status: Acute (2) Nausea and vomiting SNOMED Code(s): 09514938 ICD Code: R11.2 - NAUSEA WITH VOMITING, UNSPECIFIED Status: Acute (3) Leiomyoma SNOMED Code(s): 984941054185793, 827621837824872 ICD Code: D21.9 - BENIGN NEOPLASM OF CONNECTIVE AND OTHER SOFT TISSUE, UNSP Status: Acute - Patient Summary/Data Consults: Consultations 06/09/20 11:35 Consult to Physician [CONS] Urgent - Patient Instructions Diet: Usual Diet as Tolerated Activity: As Tolerated Notify Provider of: Fever, Increased Pain, Swelling and Redness, Drainage, Nausea and/or Vomiting - Discharge Plan *PRESCRIPTION DRUG MONITORING PROGRAM REVIEWED*: Not Applicable *COPY OF PRESCRIPTION DRUG MONITORING REPORT IN PATIENT MONALISA: Not Applicable Prescriptions/Med Rec: Cefdinir 300 mg PO BID 3 Days #6 capsule Iron Polysaccharides Complex [Ferrex 150] 150 mg PO DAILY 30 Days #30 cap Ondansetron [Ondansetron ODT] 4 mg PO Q4H PRN 3 Days #18 tab.rapdis PRN Reason: Nausea Azithromycin [Zithromax] 500 mg PO DAILY 3 Days #3 tablet Home Medications: Home Meds Azithromycin [Zithromax] 500 mg PO DAILY 3 Days #3 tablet 06/12/20 [Rx] Cefdinir 300 mg PO BID 3 Days #6 capsule 06/12/20 [Rx] Iron Polysaccharides Complex [Ferrex 150] 150 mg PO DAILY 30 Days #30 cap 06/12/20 [Rx] Ondansetron [Ondansetron ODT] 4 mg PO Q4H PRN 3 Days #18 tab.rapdis 06/12/20 [Rx] Oxygen Therapy Mode: Room Air Patient Handouts: Community-Acquired Pneumonia, Adult, [id number] Referrals: Andrea Montanez MD [Physician] - 06/12/20 4:00 pm Dora Oden NP [Primary Care Provider] - 06/16/20 5:30 pm - Discharge Summary/Plan Comment DC Time >30 min.: No - Patient Data Vitals - Most Recent: Last Vital Signs Temp 36.3 C 06/12/20 07:13 Pulse 73 06/12/20 07:13 Resp 18 06/12/20 07:13 BP 108/71 06/12/20 07:13 Pulse Ox 99 06/12/20 07:13 Weight - Most Recent: 117.979 kg I&O - Last 24 hours: Intake & Output 06/11/20 06/12/20 06/12/20 22:59 06:59 14:59 Intake Total 1960 2072 400 Output Total 1100 1750 700 Balance 860 322 -300 Lab Results - Last 24 hrs: Laboratory Results - last 24 hr 06/11/20 06/12/20 06/12/20 Range/Units 19:10 06:00 06:00 WBC 8.68 (4.0-11.0) K/uL RBC 3.95 L (4.30-5.90) M/uL Hgb 9.0 L 8.3 L (12.0-16.0) g/dL Hct 30.0 L 28.1 L (36.0-46.0) % MCV 71.1 L (80.0-98.0) fL MCH 21.0 L (27.0-32.0) pg MCHC 29.5 L (31.0-37.0) g/dL RDW Std Deviation 49.6 (28.0-62.0) fl RDW Coeff of Hailee 19 H (11.0-15.0) % Plt Count 219 (150-400) K/uL MPV 11.10 (7.40-12.00) fL Neut % (Auto) 61.7 (48.0-80.0) % Lymph % (Auto) 25.8 (16.0-40.0) % Blanco % (Auto) 9.6 (0.0-15.0) % Eos % (Auto) 2.4 (0.0-7.0) % Baso % (Auto) 0.5 (0.0-1.5) % Neut # (Auto) 5.4 (1.4-5.7) K/uL Lymph # (Auto) 2.2 (0.6-2.4) K/uL Blanco # (Auto) 0.8 (0.0-0.8) K/uL Eos # (Auto) 0.2 (0.0-0.7) K/uL Baso # (Auto) 0.0 (0.0-0.1) K/uL Nucleated RBC % 0.0 /100WBC Nucleated RBCs # 0 K/uL Sodium 143 (136-145) mmol/L Potassium 3.4 L (3.5-5.1) mmol/L Chloride 107 (98-107) mmol/L Carbon Dioxide 26.2 (21.0-32.0) mmol/L BUN 2 L (7.0-18.0) mg/dL Creatinine 0.8 (0.6-1.0) mg/dL Est Cr Clr Drug Dosing 76.95 mL/min Estimated GFR (MDRD) > 60.0 ml/min Glucose 96 (74-106) mg/dL Calcium 7.7 L (8.5-10.1) mg/dL Phosphorus 3.7 (2.6-4.7) mg/dL Magnesium 2.1 (1.8-2.4) mg/dL RAYMON Results - Last 24 hrs: Microbiology 06/09/20 10:13 Aerobic Blood Culture - Preliminary Blood - Venous - Lab Draw NO GROWTH AFTER 3 DAYS Anaerobic Blood Culture - Preliminary NO GROWTH AFTER 3 DAYS 06/09/20 10:02 Aerobic Blood Culture - Preliminary Blood - Venous NO GROWTH AFTER 3 DAYS Anaerobic Blood Culture - Preliminary NO GROWTH AFTER 3 DAYS Med Orders - Current: Current Medications Discontinued Medications Acetaminophen (Tylenol Extra Strength) 1,000 mg PO ONETIME ONE Stop: 06/08/20 18:32 Last Admin: 06/08/20 18:41 Dose: 1,000 mg Documented by: Acetaminophen (Tylenol) 650 mg PO Q4H PRN PRN Reason: Pain (Mild 1-3)/fever Last Admin: 06/12/20 00:19 Dose: 650 mg Documented by: Albuterol/Ipratropium (Combivent Respimat) 0 gm INH Q4H PRN PRN Reason: Dyspnea Azithromycin (Zithromax) 500 mg PO NOW STA Stop: 06/08/20 18:31 Last Admin: 06/08/20 18:41 Dose: 500 mg Documented by: Azithromycin (Zithromax) 500 mg PO Q24H [facility] Last Admin: 06/09/20 01:01 Dose: Not Given Documented by: Azithromycin (Zithromax) 500 mg PO Q24H [facility] Last Admin: 06/09/20 01:01 Dose: Not Given Documented by: Azithromycin (Zithromax) 500 mg PO Q24H [facility] Last Admin: 06/11/20 18:51 Dose: 500 mg Documented by: Benzonatate (Tessalon Perles) 100 mg PO TID PRN PRN Reason: Cough Last Admin: 06/12/20 01:22 Dose: 100 mg Documented by: Enoxaparin Sodium (Lovenox) 40 mg SUBCUT Q24H [facility] Last Admin: 06/08/20 20:16 Dose: 40 mg Documented by: Sodium Chloride (Normal Saline) 1,000 mls @ 999 mls/hr IV STAT ONE Stop: 06/08/20 14:47 Last Admin: 06/08/20 14:05 Dose: 999 mls/hr Documented by: Ceftriaxone Sodium/Dextrose 1 (gm/ Premix) 50 mls @ 100 mls/hr IV ONETIME ONE Stop: 06/08/20 17:34 Last Admin: 06/08/20 17:46 Dose: 100 mls/hr Documented by: Sodium Chloride (Normal Saline) 1,000 mls @ 125 mls/hr IV STAT ONE Stop: 06/09/20 02:30 Last Admin: 06/08/20 18:41 Dose: 125 mls/hr Documented by: Sodium Chloride (Normal Saline) 1,000 mls @ 125 mls/hr IV STAT SYLVIA Stop: 06/09/20 03:14 Last Admin: 06/08/20 20:19 Dose: 125 mls/hr Documented by: Ceftriaxone Sodium/Dextrose 1 (gm/ Premix) 50 mls @ 100 mls/hr IV Q24H [facility] Last Admin: 06/09/20 01:00 Dose: Not Given Documented by: Ceftriaxone Sodium/Dextrose 1 (gm/ Premix) 50 mls @ 100 mls/hr IV Q24H SYLVIA Last Admin: 06/11/20 17:08 Dose: 100 mls/hr Documented by: Sodium Chloride (Normal Saline) 500 mls @ 999 mls/hr IV .Bolus ONE Stop: 06/08/20 23:51 Last Admin: 06/08/20 23:33 Dose: 999 mls/hr Documented by: Sodium Chloride (Normal Saline) 1,000 mls @ 125 mls/hr IV ASDIRECTED [facility] Last Infusion: 06/12/20 02:10 Dose: 0 mls/hr Documented by: Iron Sucrose 100 mg/ Sodium (Chloride) 105 mls @ 105 mls/hr IV ONETIME ONE Stop: 06/11/20 12:29 Last Admin: 06/11/20 11:49 Dose: 105 mls/hr Documented by: Ibuprofen (Motrin) 400 mg PO Q6H PRN PRN Reason: Pain Last Admin: 06/12/20 01:27 Dose: 400 mg Documented by: Iopamidol (Isovue Multipack-370 (76%)) 100 ml IVPUSH ONETIME STA Stop: 06/08/20 17:29 Last Admin: 06/08/20 17:29 Dose: 100 ml Documented by: Ketorolac Tromethamine (Toradol) 30 mg IVPUSH ONETIME ONE Stop: 06/08/20 13:48 Last Admin: 06/08/20 14:06 Dose: 30 mg Documented by: Morphine Sulfate (Morphine) 4 mg IVPUSH ONETIME ONE Stop: 06/08/20 14:57 Last Admin: 06/08/20 15:01 Dose: 4 mg Documented by: Morphine Sulfate (Morphine) 4 mg IVPUSH ONETIME ONE Stop: 06/08/20 16:21 Last Admin: 06/08/20 16:40 Dose: 4 mg Documented by: Morphine Sulfate (Morphine) 2 mg IVPUSH Q4H PRN PRN Reason: Pain Last Admin: 06/10/20 01:51 Dose: 2 mg Documented by: Ondansetron HCl (Zofran) 4 mg IVPUSH ONETIME ONE Stop: 06/08/20 13:48 Last Admin: 06/08/20 14:06 Dose: 4 mg Documented by: Ondansetron HCl (Zofran) 4 mg IVPUSH ONETIME ONE Stop: 06/08/20 16:21 Last Admin: 06/08/20 16:41 Dose: 4 mg Documented by: Ondansetron HCl (Zofran) 4 mg IVPUSH Q4H PRN PRN Reason: Nausea Last Admin: 06/12/20 07:19 Dose: 4 mg Documented by: Pantoprazole Sodium (Protonix) 40 mg PO DAILY [facility] Last Admin: 06/12/20 08:18 Dose: 40 mg Documented by: Polysaccharide Iron Complex (Ferrex 150) 150 mg PO DAILY [facility] Last Admin: 06/12/20 08:18 Dose: 150 mg Documented by: Potassium Chloride (Klor-Con M20) 40 meq PO ONETIME ONE Stop: 06/09/20 09:01 Last Admin: 06/09/20 08:35 Dose: 40 meq Documented by: Potassium Chloride (Klor-Con M20) 40 meq PO ONETIME ONE Stop: 06/10/20 07:25 Last Admin: 06/10/20 08:58 Dose: 40 meq Documented by: Potassium Chloride (Klor-Con M20) 40 meq PO ONETIME ONE Stop: 06/11/20 08:46 Last Admin: 06/11/20 09:12 Dose: 40 meq Documented by: Potassium Chloride (Klor-Con M20) 40 meq PO ONETIME ONE Stop: 06/12/20 09:01 Last Admin: 06/12/20 08:18 Dose: 40 meq Documented by: <Mila Roque Last Filed: 06/12/20 22:30> Discharge Summary - Hospital Course Free Text/Narrative:: I have seen and evaluated the patient and agree with the residents note unless specified in my note - Referral to Home Health Primary Care Physician: Dora Oden NP - Patient Summary/Data Consults: Consultations 06/09/20 11:35 Consult to Physician [CONS] Urgent - Patient Data Vitals - Most Recent: Last Vital Signs Temp 36.3 C 06/12/20 07:13 Pulse 73 06/12/20 07:13 Resp 18 06/12/20 07:13 BP 108/71 06/12/20 07:13 Pulse Ox 99 06/12/20 07:13 I&O - Last 24 hours: Intake & Output 06/12/20 06/12/20 06/12/20 06:59 14:59 22:59 Intake Total 2072 400 Output Total 1750 700 Balance 322 -300 Lab Results - Last 24 hrs: Laboratory Results - last 24 hr 06/12/20 06/12/20 Range/Units 06:00 06:00 WBC 8.68 (4.0-11.0) K/uL RBC 3.95 L (4.30-5.90) M/uL Hgb 8.3 L (12.0-16.0) g/dL Hct 28.1 L (36.0-46.0) % MCV 71.1 L (80.0-98.0) fL MCH 21.0 L (27.0-32.0) pg MCHC 29.5 L (31.0-37.0) g/dL RDW Std Deviation 49.6 (28.0-62.0) fl RDW Coeff of Hailee 19 H (11.0-15.0) % Plt Count 219 (150-400) K/uL MPV 11.10 (7.40-12.00) fL Neut % (Auto) 61.7 (48.0-80.0) % Lymph % (Auto) 25.8 (16.0-40.0) % Blanco % (Auto) 9.6 (0.0-15.0) % Eos % (Auto) 2.4 (0.0-7.0) % Baso % (Auto) 0.5 (0.0-1.5) % Neut # (Auto) 5.4 (1.4-5.7) K/uL Lymph # (Auto) 2.2 (0.6-2.4) K/uL Blanco # (Auto) 0.8 (0.0-0.8) K/uL Eos # (Auto) 0.2 (0.0-0.7) K/uL Baso # (Auto) 0.0 (0.0-0.1) K/uL Nucleated RBC % 0.0 /100WBC Nucleated RBCs # 0 K/uL Sodium 143 (136-145) mmol/L Potassium 3.4 L (3.5-5.1) mmol/L Chloride 107 (98-107) mmol/L Carbon Dioxide 26.2 (21.0-32.0) mmol/L BUN 2 L (7.0-18.0) mg/dL Creatinine 0.8 (0.6-1.0) mg/dL Est Cr Clr Drug Dosing 76.95 mL/min Estimated GFR (MDRD) > 60.0 ml/min Glucose 96 (74-106) mg/dL Calcium 7.7 L (8.5-10.1) mg/dL Phosphorus 3.7 (2.6-4.7) mg/dL Magnesium 2.1 (1.8-2.4) mg/dL RAYMON Results - Last 24 hrs: Microbiology 06/09/20 10:13 Aerobic Blood Culture - Preliminary Blood - Venous - Lab Draw NO GROWTH AFTER 3 DAYS Anaerobic Blood Culture - Preliminary NO GROWTH AFTER 3 DAYS 06/09/20 10:02 Aerobic Blood Culture - Preliminary Blood - Venous NO GROWTH AFTER 3 DAYS Anaerobic Blood Culture - Preliminary NO GROWTH AFTER 3 DAYS Med Orders - Current: Current Medications Discontinued Medications Acetaminophen (Tylenol Extra Strength) 1,000 mg PO ONETIME ONE Stop: 06/08/20 18:32 Last Admin: 06/08/20 18:41 Dose: 1,000 mg Documented by: Acetaminophen (Tylenol) 650 mg PO Q4H PRN PRN Reason: Pain (Mild 1-3)/fever Last Admin: 06/12/20 00:19 Dose: 650 mg Documented by: Albuterol/Ipratropium (Combivent Respimat) 0 gm INH Q4H PRN PRN Reason: Dyspnea Azithromycin (Zithromax) 500 mg PO NOW STA Stop: 06/08/20 18:31 Last Admin: 06/08/20 18:41 Dose: 500 mg Documented by: Azithromycin (Zithromax) 500 mg PO Q24H [facility] Last Admin: 06/09/20 01:01 Dose: Not Given Documented by: Azithromycin (Zithromax) 500 mg PO Q24H [facility] Last Admin: 06/09/20 01:01 Dose: Not Given Documented by: Azithromycin (Zithromax) 500 mg PO Q24H [facility] Last Admin: 06/11/20 18:51 Dose: 500 mg Documented by: Benzonatate (Tessalon Perles) 100 mg PO TID PRN PRN Reason: Cough Last Admin: 06/12/20 01:22 Dose: 100 mg Documented by: Enoxaparin Sodium (Lovenox) 40 mg SUBCUT Q24H [facility] Last Admin: 06/08/20 20:16 Dose: 40 mg Documented by: Sodium Chloride (Normal Saline) 1,000 mls @ 999 mls/hr IV STAT ONE Stop: 06/08/20 14:47 Last Admin: 06/08/20 14:05 Dose: 999 mls/hr Documented by: Ceftriaxone Sodium/Dextrose 1 (gm/ Premix) 50 mls @ 100 mls/hr IV ONETIME ONE Stop: 06/08/20 17:34 Last Admin: 06/08/20 17:46 Dose: 100 mls/hr Documented by: Sodium Chloride (Normal Saline) 1,000 mls @ 125 mls/hr IV STAT ONE Stop: 06/09/20 02:30 Last Admin: 06/08/20 18:41 Dose: 125 mls/hr Documented by: Sodium Chloride (Normal Saline) 1,000 mls @ 125 mls/hr IV STAT SYLVIA Stop: 06/09/20 03:14 Last Admin: 06/08/20 20:19 Dose: 125 mls/hr Documented by: Ceftriaxone Sodium/Dextrose 1 (gm/ Premix) 50 mls @ 100 mls/hr IV Q24H [facility] Last Admin: 06/09/20 01:00 Dose: Not Given Documented by: Ceftriaxone Sodium/Dextrose 1 (gm/ Premix) 50 mls @ 100 mls/hr IV Q24H [facility] Last Admin: 06/11/20 17:08 Dose: 100 mls/hr Documented by: Sodium Chloride (Normal Saline) 500 mls @ 999 mls/hr IV .Bolus ONE Stop: 06/08/20 23:51 Last Admin: 06/08/20 23:33 Dose: 999 mls/hr Documented by: Sodium Chloride (Normal Saline) 1,000 mls @ 125 mls/hr IV ASDIRECTED [facility] Last Infusion: 06/12/20 02:10 Dose: 0 mls/hr Documented by: Iron Sucrose 100 mg/ Sodium (Chloride) 105 mls @ 105 mls/hr IV ONETIME ONE Stop: 06/11/20 12:29 Last Admin: 06/11/20 11:49 Dose: 105 mls/hr Documented by: Ibuprofen (Motrin) 400 mg PO Q6H PRN PRN Reason: Pain Last Admin: 06/12/20 01:27 Dose: 400 mg Documented by: Iopamidol (Isovue Multipack-370 (76%)) 100 ml IVPUSH ONETIME STA Stop: 06/08/20 17:29 Last Admin: 06/08/20 17:29 Dose: 100 ml Documented by: Ketorolac Tromethamine (Toradol) 30 mg IVPUSH ONETIME ONE Stop: 06/08/20 13:48 Last Admin: 06/08/20 14:06 Dose: 30 mg Documented by: Morphine Sulfate (Morphine) 4 mg IVPUSH ONETIME ONE Stop: 06/08/20 14:57 Last Admin: 06/08/20 15:01 Dose: 4 mg Documented by: Morphine Sulfate (Morphine) 4 mg IVPUSH ONETIME ONE Stop: 06/08/20 16:21 Last Admin: 06/08/20 16:40 Dose: 4 mg Documented by: Morphine Sulfate (Morphine) 2 mg IVPUSH Q4H PRN PRN Reason: Pain Last Admin: 06/10/20 01:51 Dose: 2 mg Documented by: Ondansetron HCl (Zofran) 4 mg IVPUSH ONETIME ONE Stop: 06/08/20 13:48 Last Admin: 06/08/20 14:06 Dose: 4 mg Documented by: Ondansetron HCl (Zofran) 4 mg IVPUSH ONETIME ONE Stop: 06/08/20 16:21 Last Admin: 06/08/20 16:41 Dose: 4 mg Documented by: Ondansetron HCl (Zofran) 4 mg IVPUSH Q4H PRN PRN Reason: Nausea Last Admin: 06/12/20 07:19 Dose: 4 mg Documented by: Pantoprazole Sodium (Protonix) 40 mg PO DAILY [facility] Last Admin: 06/12/20 08:18 Dose: 40 mg Documented by: Polysaccharide Iron Complex (Ferrex 150) 150 mg PO DAILY [facility] Last Admin: 06/12/20 08:18 Dose: 150 mg Documented by: Potassium Chloride (Klor-Con M20) 40 meq PO ONETIME ONE Stop: 06/09/20 09:01 Last Admin: 06/09/20 08:35 Dose: 40 meq Documented by: Potassium Chloride (Klor-Con M20) 40 meq PO ONETIME ONE Stop: 06/10/20 07:25 Last Admin: 06/10/20 08:58 Dose: 40 meq Documented by: Potassium Chloride (Klor-Con M20) 40 meq PO ONETIME ONE Stop: 06/11/20 08:46 Last Admin: 06/11/20 09:12 Dose: 40 meq Documented by: Potassium Chloride (Klor-Con M20) 40 meq PO ONETIME ONE Stop: 06/12/20 09:01 Last Admin: 06/12/20 08:18 Dose: 40 meq Documented by:
== END 2020-06-12 11:11 | disposition home or self-care (01) | DRG 194 ==
LOC: MW.ED 13:22 → MW.MS 18:36
PROVIDERS: ADMIT Internal Medicine; ATTEND Internal Medicine
PROC: 30233N1 Transfusion of Nonautologous Red Blood Cells into Peripheral Vein, Percutaneous Approach (ICD-10-PCS; principal; 2020-06-08)
DX: J18.9 Pneumonia, unspecified organism (principal); N17.9 Acute kidney failure, unspecified; Z88.8 Allergy status to other drugs, medicaments and biological substances; J45.909 Unspecified asthma, uncomplicated; F41.9 Anxiety disorder, unspecified; F32.9 Major depressive disorder, single episode, unspecified; Z20.822 Contact with and (suspected) exposure to COVID-19; D50.9 Iron deficiency anemia, unspecified; Z79.899 Other long term (current) drug therapy; D25.9 Leiomyoma of uterus, unspecified; N63.0 Unspecified lump in unspecified breast; E87.6 Hypokalemia
CPT/HCPCS: 0240U; 36415; 71045; 71275; 74177; 76830; 80048; 80053; 81001; 81025; 82272; 82728; 83550; 83605; 83735; 84100; 85014; 85018; 85025; 85379; 86850; 86900; 86901; 86920; 86921; 86922; 87040; 87635; 99285; A9270-GY; J0696; J1650; J1756; J1885; J2270; J2405; J7030; P9016; Q9967; U0002

== ENCOUNTER 2020-08-03 07:38 | Day surgery (SDC) | payer MEDICAID ==
[2020-07-31 11:13] LABS: BLOOD UREA NITROGEN,BUN 11 mg/dL (7.0-18.0); CARBON DIOXIDE,CO2 28.8 mmol/L (21.0-32.0); CHLORIDE,CL 103 mmol/L (98-107); GLUCOSE RANDOM 96 mg/dL (74-106); POTASSIUM,K 3.8 mmol/L (3.5-5.1); SODIUM,NA 139 mmol/L (136-145)
[~2020-08-03 07:38] MED LIST: Acetaminophen 1,000 MG in Premix Bag 1 BAG IV PRN; Fluorescein 5 ML Vial ONE; Glycopyrrolate 0.2 MG/ML SDV ONE; Ketorolac 30 MG/ML SDV ONE; Lactated Ringers 1,000 ML IV SCH; Lidocaine 2% 5 ML SDV ONE; Midazolam 1 MG/ML 2 ML SDV ONE; Octyl 2-Cyanoacrylate 1 Tube ONE; Ondansetron 4 MG/2 ML SDV ONE; Propofol 200 MG/20 ML SDV ONE; Rocuronium Bromide 50 MG/5 ML Syringe ONE; Sodium Chloride 0.9% 10 ML SDV IV PRN; Sodium Chloride 0.9% 10 ML Syringe FLUSH PRN; Sugammadex Sodium 200 MG/2 ML VIAL ONE; ceFAZolin 2 GM in Premix Bag 1 BAG IV ONE; fentaNYL 100 MCG/2 ML SDV IVPUSH PRN; fentaNYL 250 MCG/5 ML SDV ONE
--- NOTE | 2020-08-03 08:21 | PCM.PREANE ---
Preanesthetic Assessment - Anesthesia/Transfusion/Family Hx Anesthesia History: Prior Anesthesia Without Reaction Family History of Anesthesia Reaction: No Transfusion History: Prior Transfusion Without Reaction - Review of Systems General: No Symptoms Pulmonary: No Symptoms Cardiovascular: No Symptoms Gastrointestinal: No Symptoms Neurological: No Symptoms Other: Reports: None - Physical Assessment NPO Status Date: 08/03/20 NPO Status Time: 00:05 Height: 5 ft 3 in Weight: 254 lb ASA Class: 3 Mental Status: Alert & Oriented x3 Airway Class: Mallampati = 2 Dentition: Reports: Normal Dentition ROM/Head Extension: Limited/Partial Lungs: Clear to Auscultation, Normal Respiratory Effort Cardiovascular: Regular Rate, Regular Rhythm - Lab Values: Laboratory Last Values WBC 8.02 K/uL (4.0-11.0) 07/31/20 10:47 RBC 4.66 M/uL (4.30-5.90) 07/31/20 10:47 Hgb 10.5 g/dL (12.0-16.0) L 07/31/20 10:47 Hct 34.3 % (36.0-46.0) L 07/31/20 10:47 MCV 73.6 fL (80.0-98.0) L 07/31/20 10:47 MCH 22.5 pg (27.0-32.0) L 07/31/20 10:47 MCHC 30.6 g/dL (31.0-37.0) L 07/31/20 10:47 RDW Std Deviation 49.5 fl (28.0-62.0) 07/31/20 10:47 RDW Coeff of Hailee 19 % (11.0-15.0) H 07/31/20 10:47 Plt Count 334 K/uL (150-400) 07/31/20 10:47 MPV 10.30 fL (7.40-12.00) 07/31/20 10:47 Sodium 139 mmol/L (136-145) 07/31/20 10:47 Potassium 3.8 mmol/L (3.5-5.1) 07/31/20 10:47 Chloride 103 mmol/L (98-107) 07/31/20 10:47 Carbon Dioxide 28.8 mmol/L (21.0-32.0) 07/31/20 10:47 BUN 11 mg/dL (7.0-18.0) 07/31/20 10:47 Creatinine 0.8 mg/dL (0.6-1.0) 07/31/20 10:47 Est Cr Clr Drug Dosing 81.19 mL/min 07/31/20 10:47 Estimated GFR (MDRD) > 60.0 ml/min 07/31/20 10:47 Glucose 96 mg/dL (74-106) 07/31/20 10:47 Calcium 8.6 mg/dL (8.5-10.1) 07/31/20 10:47 HCG, Qual NEGATIVE (NEG) 07/31/20 10:47 Blood Type O POSITIVE 07/31/20 10:47 Antibody Screen NEGATIVE 07/31/20 10:47 - Allergies Allergies/Adverse Reactions: Allergies Allergy/AdvReac Type Severity Reaction Status Date / Time No Known Allergies Allergy Verified 07/28/20 14:52 - Acknowledgements Anesthesia Type Planned: General Anesthesia Pt an Appropriate Candidate for the Planned Anesthesia: Yes Alternatives and Risks of Anesthesia Discussed w Pt/Guardian: Yes Pt/Guardian Understands and Agrees with Anesthesia Plan: Yes Additional Comments: npo after mn asthma prn inhalers morbid obesity deb resolved pneumonia jun 08, 2020 tob none etoh occ anxiety depression no more cv sx since resloved pneumonia par no questions PreAnesthesia Questionnaire HEENT History: Reports: None Cardiovascular History: Reports: None, Heart Murmur Respiratory History: Reports: Asthma Other Respiratory History: hospitalized for pneumonia on 06/08/20, does not use rescue inhaler very often Gastrointestinal History: Reports: GERD Other Gastrointestinal History: uses Tums for heartburn Genitourinary History: Reports: None [employer] History: Reports: Dysfunctional Uterine Bleeding, Fibroids, Musculoskeletal History: Reports: None Neurological History: Psychiatric History: Reports: Anxiety, Depression Endocrine/Metabolic History: Reports: Obesity/BMI 30+ Hematologic History: Reports: Anemia, Blood Transfusion(s) Immunologic History: Reports: None Oncologic (Cancer) History: Reports: None Dermatologic History: Reports: None - Past Surgical History Head Surgeries/Procedures: Reports: None HEENT Surgical History: Reports: Myringotomy w Tube(s), Tonsillectomy Cardiovascular Surgical History: Reports: None Respiratory Surgical History: Reports: None GI Surgical History: Reports: None Female Surgical History: Reports: Tubal Ligation Endocrine Surgical History: Reports: None Neurological Surgical History: Reports: None Musculoskeletal Surgical History: Reports: None Oncologic Surgical History: Reports: None Dermatological Surgical History: Reports: None - SUBSTANCE USE Tobacco Use Status *Q: Never Tobacco User Recreational Drug Use History: No - HOME MEDS Home Medications: Home Meds Albuterol Sulfate [Albuterol Sulfate HFA] 1 - 2 puff INH Q4H PRN 06/16/20 [History] Azelastine/Fluticasone [Dymista Nasal [place]] 1 spray NASBOTH BID PRN 06/16/20 [History] Calcium Carbonate/Simethicone [Katy-Beecher Heartburn+Gas] 1 tab.chew CHEW ASDIRECTED PRN 06/16/20 [History] Ipratropium/Albuterol Sulfate [Iprat-Albut 0.5-3(2.5) mg/3 ml] 1 inhalation NEB ASDIRECTED PRN 06/16/20 [History] Zolpidem Tartrate 5 mg PO BEDTIME PRN 06/16/20 [History] Fluticasone Propion/Salmeterol [Wixela 250-50 Inhub] 1 dose INH BID 07/28/20 [History] - CURRENT (IN HOUSE) MEDS Current Meds: Current Medications Fentanyl (Fentanyl 100 Mcg/2 Ml Sdv) 50 mcg IVPUSH Q5M PRN PRN Reason: Pain Lactated Ringer's (Ringers, Lactated) 1,000 mls @ 125 mls/hr IV ASDIRECTED [facility] Acetaminophen 1,000 mg/ Premix 100 mls @ 400 mls/hr IV Q6H PRN PRN Reason: Pain Sodium Chloride (Sodium Chloride 0.9% 10 Ml Syringe) 10 ml FLUSH ASDIRECTED PRN PRN Reason: Keep Vein Open Sodium Chloride (Sodium Chloride 0.9% 2.5 Ml Syringe) 2.5 ml FLUSH ASDIRECTED PRN PRN Reason: Keep Vein Open Sodium Chloride (Sodium Chloride 0.9% 10 Ml Sdv) 10 ml IV ASDIRECTED PRN PRN Reason: IV Use Discontinued Medications Fentanyl (Fentanyl 250 Mcg/5 Ml Sdv) Confirm Administered Dose 250 mcg .ROUTE .STK-MED ONE Stop: 08/03/20 07:02 Fluorescein Sodium (Fluorescein 5 Ml Vial) Confirm Administered Dose 5 ml .ROUTE .STK-MED ONE Stop: 08/03/20 07:33 Glycopyrrolate (Glycopyrrolate 0.2 Mg/Ml Sdv) Confirm Administered Dose 0.2 mg .ROUTE .STK-MED ONE Stop: 08/03/20 07:03 Cefazolin Sodium/Dextrose 2 gm (/ Premix) 50 mls @ 100 mls/hr IV ONETIME ONE Stop: 07/31/20 10:55 Ketorolac Tromethamine (Ketorolac 30 Mg/Ml Sdv) Confirm Administered Dose 30 mg .ROUTE .STK-MED ONE Stop: 08/03/20 07:03 Lidocaine (Lidocaine 2% 5 Ml Sdv) Confirm Administered Dose 5 ml .ROUTE .STK-MED ONE Stop: 08/03/20 07:03 Midazolam HCl (Midazolam 1 Mg/Ml 2 Ml Sdv) Confirm Administered Dose 2 mg .ROUTE .STK-MED ONE Stop: 08/03/20 07:02 Octyl Cyanoacrylate (Octyl 2-Cyanoacrylate 1 Tube) Confirm Administered Dose 1 applic .ROUTE .ST-MED ONE Stop: 08/03/20 07:33 Ondansetron HCl (Ondansetron 4 Mg/2 Ml Sdv) Confirm Administered Dose 4 mg .ROUTE .STK-MED ONE Stop: 08/03/20 07:03 Propofol (Propofol 200 Mg/20 Ml Sdv) Confirm Administered Dose 200 mg .ROUTE .STK-MED ONE Stop: 08/03/20 07:02 Rocuronium [place] (Rocuronium [place] 50 Mg/5 Ml Syringe) Confirm Administered Dose 50 mg .ROUTE .STK-MED ONE Stop: 08/03/20 07:03 Sugammadex Sodium (Sugammadex Sodium 200 Mg/2 Ml Vial) Confirm Administered Dose 200 mg .ROUTE .STK-MED ONE Stop: 08/03/20 07:07
[2020-08-03] MEDS ORDERED: ceFAZolin 1 GM Vial ONE (10:03)
[2020-08-03] MEDS ORDERED: Sodium Chloride 0.9% 20 ML ONE (10:03)
[2020-08-03] MEDS ORDERED: fentaNYL 250 MCG/5 ML SDV ONE (10:52)
[2020-08-03] MEDS ORDERED: Rocuronium Bromide 50 MG/5 ML Syringe ONE (11:45)
[2020-08-03] MEDS ORDERED: Albumin 5% 250 ML Bottle ONE (12:32)
[2020-08-03] MEDS ORDERED: Ketorolac 30 MG/ML SDV IVPUSH ONE (13:27)
[2020-08-03] MEDS ORDERED: Acetaminophen/oxyCODONE 325-5 MG Tab PO PRN (13:27)
[2020-08-03] MEDS ORDERED: Promethazine 25 MG/ML SDV IM PRN (13:27)
--- NOTE | 2020-08-03 13:31 | PCM.OPNOTE ---
- General Post-Op/Procedure Note Date of Surgery/Procedure: 08/03/20 Operative Procedure(s): TLH,Cysto Pre Op Diagnosis: Fibroid uteus Post-Op Diagnosis: Same Anesthesia Technique: General ET Tube Primary Surgeon: Andrea Montanez EBL in mLs: 500 Complications: None Condition: Good
[2020-08-03] MEDS: Ondansetron 4 MG/2 ML SDV IVPUSH PRN (14:52)
[2020-08-03] MEDS: Morphine 4 MG/ML Syringe IVPUSH PRN ×3 (14:52→21:39)
[2020-08-03] MEDS: Sodium Chloride 0.9% 2.5 ML Syringe FLUSH PRN (14:58)
[2020-08-03] MEDS ORDERED: Ketorolac 30 MG/ML SDV IVPUSH PRN (19:30)
[2020-08-03] MEDS: Acetaminophen/oxyCODONE 325-5 MG Tab PO PRN (23:55)
[2020-08-04] MEDS: Ondansetron 4 MG/2 ML SDV IVPUSH PRN (01:20)
[2020-08-04] MEDS: Morphine 4 MG/ML Syringe IVPUSH PRN (03:57)
[2020-08-04] MEDS: Sodium Chloride 0.9% 2.5 ML Syringe FLUSH PRN ×2 (03:58→08:06)
[2020-08-04 05:43] LABS: BLOOD UREA NITROGEN,BUN 8 mg/dL (7.0-18.0); CARBON DIOXIDE,CO2 28.8 mmol/L (21.0-32.0); CHLORIDE,CL 103 mmol/L (98-107); GLUCOSE RANDOM 116 mg/dL (74-106); POTASSIUM,K 3.4 mmol/L (3.5-5.1); SODIUM,NA 139 mmol/L (136-145)
--- NOTE | 2020-08-04 08:59 | PCM.SURGPN ---
- General Info Date of Service: 08/04/20 POD#: 1 Functional Status: Reports: Pain Controlled - Review of Systems General: Reports: No Symptoms HEENT: Reports: No Symptoms Pulmonary: Reports: No Symptoms Cardiovascular: Reports: No Symptoms Gastrointestinal: Reports: No Symptoms Genitourinary: Reports: No Symptoms Musculoskeletal: Reports: No Symptoms Skin: Reports: No Symptoms Neurological: Reports: No Symptoms Psychiatric: Reports: No Symptoms - Patient Data Vitals - Most Recent: Last Vital Signs Temp 36.1 C 08/04/20 07:37 Pulse 83 08/04/20 07:37 Resp 16 08/04/20 07:37 BP 99/52 L 08/04/20 07:37 Pulse Ox 100 08/04/20 07:37 Weight - Most Recent: 115.212 kg I&O - Last 24 Hours: Intake & Output 08/03/20 08/04/20 08/04/20 22:59 06:59 14:59 Intake Total 525 1150 Output Total 1775 Balance 525 -625 Lab Results Last 24 Hrs: Laboratory Results - last 24 hr 08/04/20 08/04/20 Range/Units 05:03 05:03 WBC 11.50 H (4.0-11.0) K/uL RBC 3.13 L (4.30-5.90) M/uL Hgb 7.1 L (12.0-16.0) g/dL Hct 23.7 L (36.0-46.0) % MCV 75.7 L (80.0-98.0) fL MCH 22.7 L (27.0-32.0) pg MCHC 30.0 L (31.0-37.0) g/dL RDW Std Deviation 51.5 (28.0-62.0) fl RDW Coeff of Hailee 19 H (11.0-15.0) % Plt Count 240 (150-400) K/uL MPV 10.40 (7.40-12.00) fL Neut % (Auto) 78.6 (48.0-80.0) % Lymph % (Auto) 15.4 L (16.0-40.0) % Bent % (Auto) 5.0 (0.0-15.0) % Eos % (Auto) 0.9 (0.0-7.0) % Baso % (Auto) 0.1 (0.0-1.5) % Neut # (Auto) 9.1 H (1.4-5.7) K/uL Lymph # (Auto) 1.8 (0.6-2.4) K/uL Bent # (Auto) 0.6 (0.0-0.8) K/uL Eos # (Auto) 0.1 (0.0-0.7) K/uL Baso # (Auto) 0.0 (0.0-0.1) K/uL Nucleated RBC % 0.0 /100WBC Nucleated RBCs # 0 K/uL Sodium 139 (136-145) mmol/L Potassium 3.4 L (3.5-5.1) mmol/L Chloride 103 (98-107) mmol/L Carbon Dioxide 28.8 (21.0-32.0) mmol/L BUN 8 (7.0-18.0) mg/dL Creatinine 0.9 (0.6-1.0) mg/dL Est Cr Clr Drug Dosing 72.17 mL/min Estimated GFR (MDRD) > 60.0 ml/min Glucose 116 H (74-106) mg/dL Calcium 7.6 L (8.5-10.1) mg/dL Med Orders - Current: Current Medications Lactated Ringer's (Ringers, Lactated) 1,000 mls @ 125 mls/hr IV ASDIRECTED [facility] Last Admin: 08/03/20 08:18 Dose: 125 mls/hr Documented by: Ketorolac Tromethamine (Ketorolac 30 Mg/Ml Sdv) 30 mg IVPUSH Q6H PRN PRN Reason: Pain (severe 7-10) Stop: 08/08/20 19:31 Last Admin: 08/04/20 08:02 Dose: 30 mg Documented by: Morphine Sulfate (Morphine 4 Mg/Ml Syringe) 4 mg IVPUSH Q2H PRN PRN Reason: Pain (severe 7-10) Last Admin: 08/04/20 03:57 Dose: 4 mg Documented by: Ondansetron HCl (Ondansetron 4 Mg/2 Ml Sdv) 4 mg IVPUSH Q6H PRN PRN Reason: Nausea/Vomiting Last Admin: 08/04/20 01:20 Dose: 4 mg Documented by: Oxycodone/Acetaminophen (Acetaminophen/Oxycodone 325-5 Mg Tab) 1 tab PO Q4H PRN PRN Reason: Pain (moderate 4-6) Last Admin: 08/03/20 17:57 Dose: 1 tab Documented by: Oxycodone/Acetaminophen (Acetaminophen/Oxycodone 325-5 Mg Tab) 2 tab PO Q4H PRN PRN Reason: Pain (moderate 4-6) Last Admin: 08/03/20 23:55 Dose: 2 tab Documented by: Promethazine HCl (Promethazine 25 Mg/Ml Sdv) 25 mg IM Q6H PRN PRN Reason: Nausea/Vomiting Sodium Chloride (Sodium Chloride 0.9% 10 Ml Syringe) 10 ml FLUSH ASDIRECTED PRN PRN Reason: Keep Vein Open Sodium Chloride (Sodium Chloride 0.9% 2.5 Ml Syringe) 2.5 ml FLUSH ASDIRECTED PRN PRN Reason: Keep Vein Open Last Admin: 08/04/20 08:06 Dose: 2.5 ml Documented by: Sodium Chloride (Sodium Chloride 0.9% 10 Ml Sdv) 10 ml IV ASDIRECTED PRN PRN Reason: IV Use Discontinued Medications Albumin Human (Albumin 5% 250 Ml Bottle) 500 ml .ROUTE .STK-MED ONE Stop: 08/03/20 12:33 Cefazolin Sodium (Cefazolin 1 Gm Vial) Confirm Administered Dose 2 gm .ROUTE .STK-MED ONE Stop: 08/03/20 10:04 Fentanyl (Fentanyl 100 Mcg/2 Ml Sdv) 50 mcg IVPUSH Q5M PRN PRN Reason: Pain Fentanyl (Fentanyl 250 Mcg/5 Ml Sdv) Confirm Administered Dose 250 mcg .ROUTE .STK-MED ONE Stop: 08/03/20 07:02 Fentanyl (Fentanyl 250 Mcg/5 Ml Sdv) Confirm Administered Dose 250 mcg .ROUTE .STK-MED ONE Stop: 08/03/20 10:53 Fluorescein Sodium (Fluorescein 5 Ml Vial) Confirm Administered Dose 5 ml .ROUTE .STK-MED ONE Stop: 08/03/20 07:33 Glycopyrrolate (Glycopyrrolate 0.2 Mg/Ml Sdv) Confirm Administered Dose 0.2 mg .ROUTE .STK-MED ONE Stop: 08/03/20 07:03 Cefazolin Sodium/Dextrose 2 gm (/ Premix) 50 mls @ 100 mls/hr IV ONETIME ONE Stop: 07/31/20 10:55 Acetaminophen 1,000 mg/ Premix 100 mls @ 400 mls/hr IV Q6H PRN PRN Reason: Pain Last Admin: 08/03/20 13:35 Dose: 400 mls/hr Documented by: Sodium Chloride (Normal Saline) Confirm Administered Dose 20 mls @ as directed .ROUTE .STK-MED ONE Stop: 08/03/20 10:04 Acetaminophen (Ofirmev 1000 Mg/100 Ml) Confirm Administered Dose 100 mls @ as directed .ROUTE .STK-MED ONE Stop: 08/03/20 13:31 Ketorolac Tromethamine (Ketorolac 30 Mg/Ml Sdv) Confirm Administered Dose 30 mg .ROUTE .STK-MED ONE Stop: 08/03/20 07:03 Ketorolac Tromethamine (Ketorolac 30 Mg/Ml Sdv) 30 mg IVPUSH ONETIME ONE Stop: 08/03/20 13:28 Last Admin: 08/03/20 14:49 Dose: Not Given Documented by: Lidocaine (Lidocaine 2% 5 Ml Sdv) Confirm Administered Dose 5 ml .ROUTE .STK-MED ONE Stop: 08/03/20 07:03 Midazolam HCl (Midazolam 1 Mg/Ml 2 Ml Sdv) Confirm Administered Dose 2 mg .ROUTE .STK-MED ONE Stop: 08/03/20 07:02 Octyl Cyanoacrylate (Octyl 2-Cyanoacrylate 1 Tube) Confirm Administered Dose 1 applic .ROUTE .STK-MED ONE Stop: 08/03/20 07:33 Ondansetron HCl (Ondansetron 4 Mg/2 Ml Sdv) Confirm Administered Dose 4 mg .ROUTE .STK-MED ONE Stop: 08/03/20 07:03 Propofol (Propofol 200 Mg/20 Ml Sdv) Confirm Administered Dose 200 mg .ROUTE .STK-MED ONE Stop: 08/03/20 07:02 Rocuronium Kanosh (Rocuronium Kan[place] 50 Mg/5 Ml Syringe) Confirm Administered Dose 50 mg .ROUTE .STK-MED ONE Stop: 08/03/20 07:03 Rocuronium [place] (Rocuronium [place] 50 Mg/5 Ml Syringe) Confirm Administered Dose 50 mg .ROUTE .STK-MED ONE Stop: 08/03/20 11:46 Sugammadex Sodium (Sugammadex Sodium 200 Mg/2 Ml Vial) Confirm Administered Dose 200 mg .ROUTE .STK-MED ONE Stop: 08/03/20 07:07 - Exam Wound/Incisions: Healing Well General: Alert, Oriented HEENT: Pupils Equal Neck: Supple Lungs: Clear to Auscultation, Normal Respiratory Effort Cardiovascular: Regular Rate, Regular Rhythm GI/Abdominal Exam: Normal Bowel Sounds, Soft, Non-Tender, No Organomegaly, No Distention, No Abnormal Bruit, No Mass, Pelvis Stable Extremities: Normal Inspection, Normal Range of Motion, Non-Tender, No Pedal Edema, Normal Capillary Refill Skin: Warm, Dry, Intact Neurological: No New Focal Deficit Psy/Mental Status: Alert, Normal Affect, Normal Mood Sepsis Event Note - Evaluation Sepsis Screening Result: No Definite Risk - Focused Exam Vital Signs: Vital Signs Temp Pulse Resp BP Pulse Ox 08/04/20 07:37 36.1 C 83 16 99/52 L 100 08/04/20 04:00 36.4 C 82 16 114/57 L 98 08/03/20 23:53 36.1 C 79 16 115/65 97 - Problem List Review Problem List Initiated/Reviewed/Updated: Yes - My Orders Last 24 Hours: Active Orders 24 hr Category Date Time Status Patient Status [ADT] Routine ADT 08/03/20 13:27 Active Antiembolic Devices [RC] PER UNIT ROUTINE Care 08/03/20 13:27 Active Notify Provider Vital Signs [RC] ASDIRECTED Care 08/03/20 13:27 Active Oxygen Therapy [RC] ASDIRECTED Care 08/03/20 13:27 Active RT Incentive Spirometry [RC] Q2HWA Care 08/03/20 13:27 Active Up With Assistance [RC] PER UNIT ROUTINE Care 08/03/20 13:27 Active Up ad Inna [RC] PER UNIT ROUTINE Care 08/03/20 13:27 Active Vital Signs [RC] Q4H Care 08/03/20 13:27 Active Regular Diet [DIET] Diet 08/03/20 Dinner Active Acetaminophen/oxyCODONE [Percocet 325-5 MG] Med 08/03/20 13:27 Active 1 tab PO Q4H PRN Acetaminophen/oxyCODONE [Percocet 325-5 MG] Med 08/03/20 13:27 Active 2 tab PO Q4H PRN Ketorolac [Toradol] Med 08/03/20 19:30 Active 30 mg IVPUSH Q6H PRN Morphine Med 08/03/20 13:27 Active 4 mg IVPUSH Q2H PRN Ondansetron [Zofran] Med 08/03/20 13:27 Active 4 mg IVPUSH Q6H PRN Promethazine [Phenergan] Med 08/03/20 13:27 Active 25 mg IM Q6H PRN Peripheral IV Discontinue [OM.PC] Routine Oth 08/03/20 13:27 Ordered Sequential Compression Device [OM.PC] Per Unit Routine Oth 08/03/20 13:27 Ordered Resuscitation Status Routine Resus Stat 08/03/20 13:27 Ordered Medication Orders Lactated Ringer's (Ringers, Lactated) 1,000 mls @ 125 mls/hr IV ASDIRECTED [facility] Last Admin: 08/03/20 08:18 Dose: 125 mls/hr Documented by: MARGOT Ketorolac Tromethamine (Ketorolac 30 Mg/Ml Sdv) 30 mg IVPUSH Q6H PRN PRN Reason: Pain (severe 7-10) Stop: 08/08/20 19:31 Last Admin: 08/04/20 08:02 Dose: 30 mg Documented by: LINETTE Morphine Sulfate (Morphine 4 Mg/Ml Syringe) 4 mg IVPUSH Q2H PRN PRN Reason: Pain (severe 7-10) Last Admin: 08/04/20 03:57 Dose: 4 mg Documented by: Admin: 08/03/20 21:39 Dose: 4 mg Documented by: Admin: 08/03/20 19:36 Dose: 4 mg Documented by: Admin: 08/03/20 14:52 Dose: 4 mg Documented by: SKYE Ondansetron HCl (Ondansetron 4 Mg/2 Ml Sdv) 4 mg IVPUSH Q6H PRN PRN Reason: Nausea/Vomiting Last Admin: 08/04/20 01:20 Dose: 4 mg Documented by: Admin: 08/03/20 14:52 Dose: 4 mg Documented by: SKYE Oxycodone/Acetaminophen (Acetaminophen/Oxycodone 325-5 Mg Tab) 1 tab PO Q4H PRN PRN Reason: Pain (moderate 4-6) Last Admin: 08/03/20 17:57 Dose: 1 tab Documented by: SKYE Oxycodone/Acetaminophen (Acetaminophen/Oxycodone 325-5 Mg Tab) 2 tab PO Q4H PRN PRN Reason: Pain (moderate 4-6) Last Admin: 08/03/20 23:55 Dose: 2 tab Documented by: NORMA Promethazine HCl (Promethazine 25 Mg/Ml Sdv) 25 mg IM Q6H PRN PRN Reason: Nausea/Vomiting Sodium Chloride (Sodium Chloride 0.9% 10 Ml Syringe) 10 ml FLUSH ASDIRECTED PRN PRN Reason: Keep Vein Open Sodium Chloride (Sodium Chloride 0.9% 2.5 Ml Syringe) 2.5 ml FLUSH ASDIRECTED PRN PRN Reason: Keep Vein Open Last Admin: 08/04/20 08:06 Dose: 2.5 ml Documented by: Admin: 08/04/20 03:58 Dose: 2.5 ml Documented by: Admin: 08/03/20 14:58 Dose: 2.5 ml Documented by: SKYE Sodium Chloride (Sodium Chloride 0.9% 10 Ml Sdv) 10 ml IV ASDIRECTED PRN PRN Reason: IV Use - Assessment Assessment (Free Text/Narrative):: Status post ELH postoperative day #1 the patient home but A not orthostatic or hypotensive her hemoglobin dropped from 10 to 7.1) patient is not symptomatic I discussed that with her and we elected at this time to hold blood transfusion and we will evaluate her H&H in the office next week. I encouraged the patient to use iron and vitamin at home. - Plan Plan (Free Text/Narrative):: The patient will be discharged today the post hysterectomy instruction is given to the patient there is no restriction on her diet scription for Narco 5/325 for postoperative pain is given to the patient.
[2020-08-04] MEDS: Acetaminophen/oxyCODONE 325-5 MG Tab PO PRN (09:40)
--- NOTE | 2020-08-04 10:06 | OR ---
SURGEON: Andrea Montanez MD DATE OF PROCEDURE: 08/03/2020 PREOPERATIVE DIAGNOSES: Menometrorrhagia, large uterus with multiple fibroids about 20 weeks size, anemia. PROCEDURES: Multiple-puncture diagnostic laparoscopy, total laparoscopic hysterectomy preserving both ovaries, vaginal morcellation of the uterus, and cystoscopy. PRIMARY SURGEON: Andrea Montanez MD SENIOR PRINCIPAL PROCESS ENGINEER: OR tech. ANESTHESIA: General endotracheal intubation. ESTIMATED BLOOD LOSS: 500 mL. COMPLICATIONS: None. FINDINGS: Multiple fibroid uterus about 20 weeks size uterus. INDICATIONS FOR SURGERY: [place] refer to the admit note. PROCEDURE IN DETAIL: The patient was brought to the OR, properly identified. After adequate level of anesthesia, the patient was placed in lithotomy position, prepped and draped in sterile fashion as usual. A weighted speculum was placed in the vagina and then the colpotomizer manipulator placed in the uterus for manipulation. Then, operation shifted abdominally. Stab wound done beneath the umbilicus. The Veress needle was placed in the peritoneal cavity and that cavity insufflated with adequate amount of carbon dioxide to place the central trocar under direct vision utilizing the Visiport technique safely. Once the central trocar beneath the umbilicus was visible, then a 10/12 trocar placed in the left iliac fossa and 5 mm trocar in the right iliac fossa. The operation was started by incising the uterus and identifying the pedicle of the uterus. Both ovaries were preserved and the superior pedicle coagulated and transected on both sides. Then, the round ligament was coagulated and transected on both sides, and then the anterior leaf of the broad ligament dissected down medially pushing the bladder completely away from the operative field. Skeletonization of the uterine vessel was done at the level of the manipulator, and then using the Ernie Harmonic scalpel, these vessels were coagulated and transected. The uterus was now only attached by the vagina using the Ernie Harmonic scalpel. Circular incision in the vaginal mucosa was done around the edge of the manipulator and then once this was done, then the operation shifted vaginally and weighted speculum placed in the vagina. A single-tooth tenaculum was applied to the cervix. We started methodically morcellating the uterus and reducing its size. Once it was reduced to the size about 10 or 12, of the uterus vaginally. Once , I was able to remove it vaginally and then pneumoperitoneum re-established by placing vaginal pack in the vagina. Then, the operation shifted back abdominally and then after placing the patient back on steep Trendelenburg, then thorough irrigation of the pelvis and inspection of the all pedicles, it shows no oozing, no bleeding, we proceeded to close the vaginal cuff laparoscopically, and while we were doing that, we asked Anesthesia personnel to give the patient fluorescein, and after doing that, the Reyes catheter was removed and cystoscopy was performed, the bladder was intact. Both ureteric orifices seen with the dye coming from both of them. Thus, the patency of both ureters verified. Satisfied with these finding, the laparoscopic instrument was retrieved from the abdomen and the laparoscopic incision was closed in layers. Instrument and sponge count was correct. The patient tolerated the procedure well, went to recovery room in stable general condition. TRUMAN / [place] /[id number]
== END 2020-08-04 09:50 | disposition home or self-care (01) ==
LOC: MW.SDS 07:38 → MW.MS 13:35 → MW.SDS 08-04 09:50
PROVIDERS: ATTEND Obstetrics & Gynecology
DX: D25.9 Leiomyoma of uterus, unspecified (principal); D64.9 Anemia, unspecified; N92.1 Excessive and frequent menstruation with irregular cycle; J45.901 Unspecified asthma with (acute) exacerbation; E66.01 Morbid (severe) obesity due to excess calories; Z68.44 Body mass index [BMI] 60.0-69.9, adult; Z79.899 Other long term (current) drug therapy; Z87.01 Personal history of pneumonia (recurrent); Z98.890 Other specified postprocedural states
CPT/HCPCS: 36415; 58553; 80048; 84703; 85025; 85027; 86850; 86900; 86901; A9270; J0131; J0690; J1885; J2250; J2270; J2405; J2704; J3010; J3490; J7120; P9045; 00840

== ENCOUNTER 2021-05-09 16:37 | Emergency (ER) | payer MEDICAID | END 2021-05-09 18:26 | disposition home or self-care (01) | LOC: MW.ED 16:37 | DX: T80.92XA Unspecified transfusion reaction, initial encounter (principal); R07.89 Other chest pain; E66.9 Obesity, unspecified; Z79.899 Other long term (current) drug therapy; Z68.42 Body mass index [BMI] 45.0-49.9, adult | CPT/HCPCS: 36415; 84484; 93005; 99285-25 ==

== ENCOUNTER 2021-12-06 08:09 | Emergency (ER) | payer MEDICAID ==
[2021-12-06] MEDS ORDERED: Ibuprofen 600 MG Tab PO ONE (08:31)
== END 2021-12-06 10:48 | disposition home or self-care (01) ==
LOC: MW.ED 08:09
DX: M79.671 Pain in right foot (principal); E66.9 Obesity, unspecified; Z68.41 Body mass index [BMI] 40.0-44.9, adult; Z86.16 Personal history of COVID-19
CPT/HCPCS: 73610; 73620; 99283; A9270

== ENCOUNTER 2022-08-28 10:20 | Emergency (ER) | payer MEDICAID ==
[2022-08-28] MEDS ORDERED: Sodium Chloride 0.9% 2.5 ML Syringe FLUSH PRN (10:34)
[2022-08-28] MEDS ORDERED: Sodium Chloride 0.9% 10 ML Syringe FLUSH PRN (10:34)
[2022-08-28] MEDS ORDERED: Promethazine 25 MG/ML SDV IM STA (10:35)
[2022-08-28] MEDS ORDERED: diphenhydrAMINE 50 MG/ML SDV IVPUSH STA (10:35)
[2022-08-28] MEDS ORDERED: Sodium Chloride 0.9% 1,000 ML IV STA (10:35)
[2022-08-28] MEDS ORDERED: Ketorolac 30 MG/ML SDV IVPUSH STA (10:35)
[2022-08-28 11:17] LABS: CARBON DIOXIDE,CO2 27.8 mmol/L (21.0-32.0)
== END 2022-08-28 11:58 | disposition home or self-care (01) ==
LOC: MW.ED 10:20
DX: G43.909 Migraine, unspecified, not intractable, without status migrainosus (principal); E66.9 Obesity, unspecified; Z68.42 Body mass index [BMI] 45.0-49.9, adult; Z86.16 Personal history of COVID-19
CPT/HCPCS: 36415; 80053; 83735; 85025; 96361; 96372; 96374; 96375; 99283; J1200; J1885; J2550; J3490; J7030; 99284

== ENCOUNTER 2022-10-07 18:07 | Emergency (ER) | payer MEDICAID ==
[2022-10-07] MEDS ORDERED: Clindamycin HCl 150 MG Cap PO STA (21:08)
== END 2022-10-07 21:35 | disposition home or self-care (01) ==
LOC: MW.ED 18:07
DX: L03.311 Cellulitis of abdominal wall (principal); E66.9 Obesity, unspecified; Z86.16 Personal history of COVID-19; Z68.42 Body mass index [BMI] 45.0-49.9, adult
CPT/HCPCS: 99281; A9270; 99283

== ENCOUNTER 2023-04-30 06:43 | Emergency (ER) | payer BC, MEDICAID ==
[2023-04-30] MEDS ORDERED: predniSONE 10 MG Tab PO ONE (06:52)
[2023-04-30] MEDS ORDERED: Albuterol/Ipratropium 3.0-0.5 MG/3 ML Neb Soln NEB ONE (06:52)
[2023-04-30 07:46] LABS: CORONAVIRUS COVID-19 NAA NEGATIVE (NEGATIVE); INFLUENZA A NAA NEGATIVE (NEGATIVE); INFLUENZA B NAA POSITIVE (NEGATIVE)
== END 2023-04-30 09:30 | disposition home or self-care (01) ==
LOC: MW.ED 06:43
DX: J10.1 Influenza due to other identified influenza virus with other respiratory manifestations (principal); J45.909 Unspecified asthma, uncomplicated; E66.9 Obesity, unspecified; Z68.42 Body mass index [BMI] 45.0-49.9, adult; Z20.822 Contact with and (suspected) exposure to COVID-19; Z86.16 Personal history of COVID-19; Z79.899 Other long term (current) drug therapy
CPT/HCPCS: 0240U; 71046; 93005; 99285; A9270; J7620-GY

== ENCOUNTER 2023-11-08 04:43 | Emergency (ER) | payer BC ==
[2023-11-08 05:08] LABS: BASOPHILS ABSOLUTE AUTO 0.04 K/uL (0.00-0.20); BASOPHILS PERCENT AUTO 0.3 % (0.0-1.0); EOSINOPHILS ABSOLUTE AUTO 0.14 K/uL (0.00-0.45); EOSINOPHILS PERCENT AUTO 0.9 % (0.0-6.0); HEMATOCRIT 41.4 % (37.0-47.0); HEMOGLOBIN 14.1 g/dL (12.0-16.0); IMMATURE GRAN ABSOLUTE AUTO 0.05 K/uL (0.00-0.05); IMMATURE GRAN PERCENT AUTO 0.3 % (0.0-0.4); MEAN CORPUSCULAR HEMOGLOBIN 29.4 pg (28.0-32.0); MEAN CORPUSCULAR HGB CONC 34.1 g/dL (32.0-36.0); MEAN CORPUSCULAR VOLUME 86.3 fL (83.0-99.0); MEAN PLATELET VOLUME 10.7 fL (9.4-12.3); MONOCYTES ABSOLUTE AUTO 0.89 K/uL (0.00-0.80); MONOCYTES PERCENT AUTO 5.7 % (0.0-8.0); NEUTROPHILS ABSOLUTE AUTO 11.62 K/uL (1.80-7.70); NEUTROPHILS PERCENT AUTO 74.8 % (41.0-71.0); PLATELET COUNT,PLT 261 K/uL (150-400); WHITE BLOOD CELL COUNT,WBC 15.54 K/uL (3.9-11.3)
[2023-11-08 05:20] LABS: INR 0.98 (0.86-1.11)
[2023-11-08] MEDS: Iopamidol 755 MG/ML 500 ML Multipack Bottle IVPUSH ONE (05:21)
[2023-11-08 05:32] LABS: BILIRUBIN TOTAL 0.5 mg/dL (0.2-1.0); CALCIUM 8.8 mg/dL (8.5-10.1); CARBON DIOXIDE,CO2 26.2 mmol/L (21.0-32.0); EST CRCL DRUG DOSING (CG) 62.48 mL/min; POTASSIUM,K 3.9 mmol/L (3.5-5.1); PROTEIN TOTAL,TP 7.9 g/dL (6.4-8.2)
[2023-11-08] MEDS: Morphine 4 MG/ML Syringe IVPUSH ONE (06:25)
[2023-11-08] MEDS: Diphtheria,Pertussis(Acell),Tetanus Vaccine 0.5 ML Syringe IM ONE (08:13)
[2023-11-08] MEDS: Sodium Chloride 0.9% 10 ML Syringe FLUSH PRN (08:15)
[2023-11-08] MEDS: Sodium Chloride 0.9% 2.5 ML Syringe FLUSH PRN (08:15)
== END 2023-11-08 09:17 | disposition home or self-care (01) ==
LOC: MW.ED 04:43
DX: S00.93XA Contusion of unspecified part of head, initial encounter (principal); S00.91XA Abrasion of unspecified part of head, initial encounter; J45.909 Unspecified asthma, uncomplicated; X50.9XXA Other and unspecified overexertion or strenuous movements or postures, initial encounter
CPT/HCPCS: 36415; 70450; 70486; 70498; 80053; 85025; 85610; 90471; 90715; 96374; 99284; J2270; J3490; Q9967